=== PATIENT | female | born 1990 | race Caucasian/White ===

== ENCOUNTER 2024-09-23 13:03 | Emergency (ER) | payer OTHER, SELFPAY ==
--- OUTSIDE RECORDS SUMMARY | 2024-08-19 13:15 | XMS_ITS | Encounter Summary ---
Author Organization [facility] Address [address] [address] Care Team Providers Care Csm Consultant Name Role Phone Aziza Winkler MD Primary Care Provider [phone] Reason for Visit * Reason Comments Diabetes Follow-up Encounter Details Date Type Department Care Team (Late st Contact Info) Description 08/19/2024 1:15 PM CDT Office Visit [facility] [address] End[address] [facility]. [place], [place] [id number] Cyndi Ontiveros, HIDE CURER, COMMUNITY MARKETING COORDINATOR [address] [place], [place] [phone] Type 1 diabetes mellitus with other specified complication (HRC) (Primary Dx); Diabetic gastroparesis associated with type 1 diabetes mellitus (HRC); Insulin pump in place (HRC); PCOS (polycystic ovarian syndrome) (HRC); Thyroid nodule (HRC) Social History Tobacco Use Types Packs/Day Years Used Date Smoking Tobacco: Never Smokeless Tobacco: Never Alcohol Use Standard Drinks/Week Comments No 0 (1 standard drink = 0.6 oz pur e alcohol) Depression Answer Date Recor ded Last EPDS Total Score 19 03/29/2024 Last EPDS Self Harm Result Not on file 03/29 Comments No Sex and Gender Information Value Date Recorded Sex Assigned at Not on file Legal Sex Female 4:38 AM CDT Gender Identity Not on file Sexual Orientation Not on file 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 female is contacted for follow up of Type 1 diabetes.. [facility] History of Present Illness: Subjective: Diagnosed with diabetes: age 2 Complications: Last eye exam: Over 1 yr. Foot exam: today 07/2024. History of some insulin resistance. History of some gastroparesis symptoms. Normal gastric emptying scan 2016. Kidney screen: AlbCr ratio was 237 in 06/2024--with bilirubin. Recheck 07/08/2024 42 again with Bilirubin. Met with PCP re: bilirubinuria, but then no bilirubin. Will recheck albCr ratio again before deciding on EBENEZER I use. Pt is using tandem pump in control IQ mode. Sleep schedule is set nightly. Patient has been utilizing Zepbound from [facility]..Starting wgt: 211 lb . Current weight 139 lb. Goal 140 lb. She has been eating healthy meal plan. Joined a functional fitness gym where she takes 1 hour classes 2-3 times per week and works on weight training and aerobic exercise. Now using 5 mg every 10 days. Has noted increased appetite. Patient finds that she really does not need much bolus insulin at this time with her current meal planning. Was mainly eating pro while losing wgt. Now taking a bit less zepbound, so having some carb. If she enters grams, she often gets low. Other health issues: PCOS Hx of Eating disorder Obstructive sleep apnea History of severe obesity. Right thyroid nodule. Ultrasound-guided FNA 02/2024 was benign. Social history: Tobacco: reports that she has never smoked. She has never used smokeless tobacco. Two sons. 06/2019. Roge. 09/2020 Abad. Using IUD now. Patient states is planning vasectomy. No plans for future pregnancies. Pump settings: Basal [place] 0.7 2pm 0.8 Correction factor 50 I:C ratio 15 g TDD average 27.32. 70% basal. 30% bolus. Enters 24 g/day average. Objective: Very pleasant female. Soft spoken. NAD Glucose Monitoring: Home glucose monitoring: Using CGMS daily BG data uploaded into encounter. 2 weeks of data reviewedand discussed. Average blood sugar 155 SD 41 Very high 01.9% High 24% In range 74% Lows 0.2% Urgent low 0% No severe hypoglycemia. Rise after foods when not giving bolus -- rosie dinner--but sometimes a bit low after entering grams. Vitals: BP 93/60 (BP Location: Right Arm, BP Cuff Size: Regular) Pulse 71 Wt 139 lb (63 kg) BMI 23.85kg/m?? Estimated body mass index is 23.85 kg/m?? as calculated from the following: Height as of 07/26/24: 5' 4.02 (1.626 m). Weight as of this encounter: 139 lb (63 kg). . Assessment: Darby is a 33 y.o. female who was contacted today for Type 1 diabetes mellitus with following diagnoses: Diagnoses and Orders Placed: 1. Type 1 diabetes mellitus with other specified complication (HRC) 2. Diabetic gastroparesis associated with type 1 diabetes mellitus (HRC) 3. Insulin pump in place (HRC) 4. PCOS (polycystic ovarian syndrome) (HRC) 5. Thyroid nodule (HRC) Plan: 1. Adjust I:C ratio 1/20 grams from [place] to 6pm. Keep 1/15 g from 6pm onward. Try to enter grams before carbs more often. 2. Discussed AlbCr ratio results. Recheck with UA. Will start ACEI if needed. Discussed tx of microalb. 3. Will recheck FLP as well as it was quite elevated 06/2024. 4. Follow-up with Dr. Borden in 3-4 months. 5. Pt will continue Zepbound 5 mg every 10 days for now. We discussed that it may be needed detention. documented in this encounter Plan of Treatment Not on file documented as of this encounter Goals Goal Patient Goal Type Associated Problems Recent Progress Patient-Stated? Author Taking my medication Diabetes Education On track( 017 4:14 PM CDT) No Dianna Carter RN, WILLISES Note: Continue to use Bolus Wizard for all boluses. Solving problems related to my diabetes Diabetes Education No Dianna Carter RN, WILLISES Note: Reduce basal rate to 50 - 75% while on trip to [facility]. documented as of this encounter Results * (ABNORMAL) Urinalysis Routine, Micro/Culture if Pos: Clean Catch (09/02/2024 8:59 AM CDT) Urine Microscopic Evaluation Reflex Order Comment Urinalysis results meet criteria for reflex, urine microscopic evaluation performed. 09/02/2024 9:19 AM [facility] Color Yellow 09/02/2024 9:19 AM [facility] Clarity Clear Clear 09/02/2024 9:19 AM [facility] Specific [place] 1.025 1.005 - 1.030 09/02/2024 9:19 AM [facility] pH 6.0 5.0 - 8.0 09/02/2024 9:19 AM [facility] Protein Negative Neg/Trace mg/dL 09/02/2024 9:19 AM [facility] Glucose Negative Negative mg/dL 09/02/2024 9:19 AM [facility] Ketones Negative Negative mg/dL 09/02/2024 9:19 AM [facility] Urobilinogen 0.2 <2.0 EU/dL 09/02/2024 9:19 AM [facility] Bilirubin Negative Negative 09/02/2024 9:19 AM [facility] Blood Trace Neg/Trace 09/02/2024 9:19 AM [facility] Nitrite Negative Negative 09/02/2024 9:19 AM [facility] Leukocyte Esterase Trace(A) Negative 09/02/2024 9:19 AM [facility] Source Clean Catch 09/02/2024 9:19 AM CDT [facility] Urine URINE SPECIMEN COLLECTION, CLEAN CATCH / Unknown Non-blood Collection / Unknown 09/02/2024 8:59 AM CDT 09/02/2024 8:59 AM CDT Cyndi Ontiveros APRN, MARTHA LAB_1 Final Re sult [facility] [address] [place] [address] * Albumin/Creatinine Ratio,Random Urine (09/02/2024 8:59 AM CDT) Albumin/Creati nine Ratio, Urine, Random 8 <30 mg/g 09/02/2024 10:32 AM T [facility] Albumin, Urine, Random 14.3 mg/L 09/02/2024 10:32 AM T [facility] Creatinine, Urine, Random 176 >20 mg/dL mg/dL 09/02/2024 10:32 AM T [facility] Urine Non-blood Collection / Unknown 09/02/2024 8:59 AM CDT 09/02/2024 8:59 AM CDT Cyndi Ontiveros APRN, MARTHA LAB_1 Final [facility] Performing Organization Address City/[facility]/ZIP Co de Phone Number [facility] [address] [place] [address] * Lipid Panel and Direct LDL (if needed) (09/02/2024 8:57 AM CDT) Cholesterol 197 0 - 199 mg/dL 09/02/2024 4:22 PM T [facility] Triglyceride 45 <=149 mg/dL 09/02/2024 4:22 PM T [facility] HDL Cholesterol 61 >=40 mg/dL 4:22 PM T [facility] LDL, Calculated 127 <130 mg/dL 4:22 PM T [facility] Non HDL Chol, Calculated 136 <=159 mg/dL 09/02/2024 4:22 PM T [facility] Cholesterol/HDL Ratio 3.2 <=5.0 09/02/2024 4:22 PM T [facility] Hours Fasting 14.0 8 - 12 Hours 09/02/2024 4:22 PM T [facility] Blood Venipuncture / Unknown 09/02/2024 8:57 AM CDT 09/02/2024 8:57 AM CDT us Cyndi Ontiveros APRN, COMMUNITY MARKETING COORDINATOR LAB_1 Final Re sult [facility] [address] [place] [address], [facility] [address] [place] [address] documented in this encounter Visit Diagnoses Diagnosis Type 1 diabetes mellitus with other specified complication (HRC)- Primary Diabetic gastroparesis associated with type 1 diabetes mellitus (HRC) Insulin pump in place (HRC) Insulin pump status PCOS (polycystic ovarian syndrome) (HRC) Polycystic ovaries Thyroid nodule (HRC) Nontoxic uninodular goiter documented in this encounter Care Teams Csm Consultant Relationship Specialty [place] [address] [place] [address] PCP - General Hospitalist 04/03/16 documented as of this encounter
--- OUTSIDE RECORDS SUMMARY | 2024-08-24 16:00 | XMS_ITS | Encounter Summary ---
Author Organization [facility] Address [address], [place] [address] Care Team Providers Care Bed Spring Maker Name Role Phone Aziza Winkler MD Primary Care Provider [phone] Reason for Visit * Reason Comments Video Visit Anticoagulation Follow-up Xarelto refill Encounter Details Date Type Department Care Team (Late st Contact Info) Description 08/24/2024 4:00 PM CDT Telemedicine [facility] [address] Thrombosis [address] [place] [address] Carol Case, REVENUE RESEARCH ANALYST, HORTICULTURAL AGENT [address] [place] [address] On continuous oral anticoagulation (Primary Dx); History of pulmonary embolism; Factor V Leiden (HRC) Social History Tobacco Use Types Packs/Day [...] 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 Keep in mind the signs and symptoms of bleeding. You are due for routine laboratories. I will send you the results when available. Follow-up 1 year or as needed. Call with questions. Thank you. documented in this encounter Progress Notes * Carol Case APRN, CNP - 08/24/2024 4:00 PM CDT SUBJECTIVE: I'm seeing this 33 y.o. female patient in follow up of anticoagulation. Darby Das is a pleasant 33-year-old female with history of esophageal reflux, type 1 diabetes, gastroparesis, PCOS, anxiety, depression, and history of pulmonary embolism and homozygous factor 5 Leiden. She was diagnosed with a pulmonary embolism in 2010 thought related to use of oral contraceptives. Thrombophilia testing identified her as homozygous factor 5 Leiden. She has been anticoagulated essentially since that time. She was on warfarin. She used Lovenox injections during pregnancies. She would also used Xarelto for a period of time as well. Previously she had been on 10 mg. She is followed with Hematology in the past. Essentially she was given the choice as to whether not she wanted to remain on anticoagulation. She has chosen to continue therapy. She was on Xarelto previously at a 10 mg dose. She was switched to Lovenox during . Last was in 2021 after whichshe apparently did not resume taking Xarelto. Sometime thereafter she saw primary care and Xarelto was resumed at 20 mg daily and then referred to the thrombosis clinic. I met her in May last year.We opted to decrease her dose to 10 mg daily. I am meeting with her today in follow-up. She tells me she is doing well. No problems with chest pain or shortness a breath. No bleeding or bruising issues. Patient Active Problem List Diagnosis Generalized anxiety disorder (HRC) Factor V Leiden (HRC) PCOS (polycystic ovarian syndrome) (HRC) Major depressive disorder, recurrent episode, moderate (HRC) Thyroid nodule Other specified eating disorder Insulin pump in place (HRC) Type 1 diabetes mellitus (HRC) Gastroesophageal reflux disease without esophagitis Rh negative state in antepartum period, first trimester Need for hepatitis B vaccination History of pulmonary embolism S/P primary low transverse ASCUS of cervix with negative high risk HPV Gastroparesis Modified White class D pregestational diabetes mellitus Non-stress test reactive Polyhydramnios affecting in third trimester Postherpetic neuralgia Pre-existing type 1 diabetes mellitus during in third trimester Seasonal allergies Severe episode of recurrent major depressive disorder, without psychotic features (HRC) Supervision of high risk , unspecified, unspecified trimester Unsatisfactory anal cytology smear Multiple thyroid nodules (HRC) 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 BAQSIMI ONE PACK 3 MG/DOSE nasal powder Place 1 Dose (3 mg) into one nostril as needed for Hypoglycemia. May repeat in 15 minutes prn. Do not open tube until ready to use. blood glucose (CONTOUR NEXT TEST) test strip Use 1 strip to test six times per day Blood Glucose Monitoring Suppl (CONTOUR NEXT LINK) w/Device KIT Use as directed to test blood glucose [employer] G7 Sensor continuous blood glucose device USE DIRECTED FOR CONTINUOUS GLUOSE MONITORING. CHANGE EVERY 10 DAYS Glucagon, rDNA, (GLUCAGON EMERGENCY) 1 MG Kit insulin glargine (LANTUS) 100 UNIT/ML injection Inject 14-15 Units subcutaneously daily. In case ofpump fail. insulin lispro (HUMALOG; ADMELOG) 100 UNIT/ML injection vial INJECT SUBCUTANEOUSLY THREE TIMES DAILY BEFORE MEALS DIRECTED TOTAL DAILY USE 85 UNITS insulin syringe-needle 30G X 1/2 inch 0.3 mL Inject 1 Each subcutaneously 4 times a day. Insulin Syringe-Needle U-100 (INSULIN SYRINGE 1CC/29G) 29G X 1/2 1 ML Inject 3- 4 Each subcutaneously daily. lancets (OrbFlex) Use 3 Each to test daily. Use as directed. Pharmacy dispense brand based on insurance. loratadine (CLARITIN) 10 MG tablet Take 1 Tablet (10 mg) by mouth daily. Multiple Vitamin (MULTIVITAMINS OR) ondansetron (ZOFRAN) 4 MG tablet Take 1 Tablet (4 mg) by mouth every 8 hours as needed for Nausea. Probiotic Product (PROBIOTIC DAILY OR) rivaroxaban (XARELTO) 10 MG tablet TAKE 1 TABLET (10 MG) BY MOUTH DAILY. tirzepatide-weight management (ZEPBOUND) 10 MG/0.5ML injection Inject 0.5 mL (10 mg) subcutaneouslyonce every week. No facility-administered medications prior to visit. Adverse Drug Reactions: Bacid Family and Social history reviewed in EMR. Review of Systems: Pertinent items are noted in HPI. OBJECTIVE: Labs: July 15, 2024 creatinine 0.79, AST 21 and ALT 13 ASSESSMENT: On anticoagulation History of pulmonary embolism Homozygous factor 5 Leiden PLAN: Darby and I reviewed the indication for ongoing anticoagulation. She is agreeable to continuing with Xarelto. She is due for routine laboratories. I will send her the results when available. Follow-up 1 year, sooner if needed. She is aware she has questions or concerns she can contact our office. Thank you for allowing me to be part of this patient's care. Carol Case APRN, MARTHA This dictation was done using voice recognition software and may contain incidental errors documented in this encounter Plan of Treatment Not on file documented as of this encounter Goals Goal Patient Goal Type Associated Problems Recent Progress Patient-Stated? Author Taking my medication Diabetes Education On track( 017 4:14 PM CDT) No Dianna Carter RN, PERLA Note: Continue to use Bolus Wizard for all boluses. Solving problems related to my diabetes Diabetes Education No Dianna Carter, RN, WILLISES Note: Reduce basal rate to 50 - 75% while on trip to [facility]. documented as of this encounter Results * Platelets (09/02/2024 8:57 AM CDT) [facility] Platelets 239 150 - 450 x10(9)/L 09/02/2024 9:04 AM CDT [facility] Blood Venipuncture / Unknown 09/02/2024 8:57 AM CDT 09/02/2024 8:57 AM CDT Carol Case APRN, CNP LAB_1 Fin al Result Performing Organization Address [facility] Co de Phone Number [facility] [address] [place] [address] * Hemoglobin, Blood (09/02/2024 8:57 AM CDT) Hemoglobin 12.8 12.0 - 15.5 g/dL 09/02/2024 9:04 AM CDT [facility] Blood Venipuncture / Unknown 09/02/2024 8:57 AM CDT 09/02/2024 8:57 AM CDT Carol aCse APRN, CNP LAB_1 Fin al Result Performing Organization Address [facility] de Phone Number [facility] [address] [place] [address] documented in this encounter Visit Diagnoses Diagnosis On continuous oral anticoagulation- Primary History of pulmonary embolism Personal history of pulmonary embolism Factor V Leiden (HRC) Primary hypercoagulable state documented in this encounter Care Teams Bed Spring Maker Relationship Specialty [place] [address] [place] [address] PCP - General Hospitalist 04/03/16 documented as of this encounter
--- OUTSIDE RECORDS SUMMARY | 2024-09-02 08:50 | XMS_ITS | Encounter Summary ---
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 Author Taking my medication Diabetes Education On track( 017 4:14 PM CDT) No Dianna Carter RN, [facility] Note: Continue to use Bolus Wizard for all boluses. Solving problems related to my diabetes Diabetes Education No Dianna Carter RN, [facility] Note: Reduce basal rate to 50 - 75% [facility]. documented as of this encounter Procedures Procedure Name Priority Date/Time Associated Diagnosis Comments URINALYSIS ROUTINE, MICRO/CULTURE IF POS Routine 09/02/2024 8:59 AM CDT Type 1 diabetes mellitus with other specified complication (HRC) ALBUMIN/CREAT RATIO Routine 09/02/2024 8:59 AM CDT Type 1 diabetes mellitus with other specified complication (HRC) UA MICRO Routine 09/02/2024 8:59 AM CDT Type 1 diabetes mellitus with other specified complication (HRC) LIPID PANEL & DIRECT LDL (IF NEEDED) Routine 09/02/2024 8:57 AM CDT Type 1 diabetes mellitus with other specified complication (HRC) PLATELETS Routine 09/02/2024 8:57 AM CDT On continuous oral anticoagulation HEMOGLOBIN, BLOOD Routine 09/02/2024 8:5 7 AM CDT On continuous oral anticoagulation documented in this encounter Results * (ABNORMAL) Urine Microscopic Evaluation: Clean Catch (09/02/2024 8:59 AM CDT) Urine Culture Comment Urinalysis results do not meet criteria for urine culture reflex. 09/02/2024 9:[address] [facility] Red Blood Cells 0-3 0 - 3 /HPF 09/02/2024 9:[address] [facility] White Blood Cells 0-5 0 - 5 /HPF 09/02/2024 9:[address] [facility] Bacteria Moderate(A) None Seen /HPF 09/02/2024 9:[address] [facility] Squamous Epithelial Cells Few None Seen, Occasiona l, Few /HPF 09/02/2024 9:[address] [facility] Mucus Present(A) None Seen /HPF 09/02/2024 9:[address] [facility] Urine URINE SPECIMEN COLLECTION, CLEAN CATCH / Unknown Non-blood Collection / Unknown 09/02/2024 8:59 AM CDT 09/02/2024 8:59 AM CDT us Cyndi Ontiveros ONLINE AFFILIATE MARKETING MANAGER, READING TUTOR LAB_1 Final Re sult [facility] [address] [place] [address], [facility] * (ABNORMAL) Urinalysis Routine, Micro/Culture if Pos: Clean Catch (09/02/2024 8:59 AM CDT) Urine Microscopic Evaluation Reflex Order Comment Urinalysis results meet criteria for reflex, urine microscopic evaluation performed. 09/02/2024 9:19 AM [facility] Color Yellow 09/02/2024 9:19 AM [facility] Clarity Clear Clear 09/02/2024 9:19 AM [facility] Specific [place] 1.025 1.005 - 1.030 09/02/2024 9:19 AM [facility] pH 6.0 5.0 - 8.0 09/02/2024 9:19 AM [facility] Protein Negative Neg/Trace mg/dL 09/02/2024 9:19 AM [facility] Glucose Negative Negative mg/dL 09/02/2024 9:19 AM [facility] Ketones Negative Negative mg/dL 09/02/2024 9:19 AM [facility] Urobilinogen 0.2 <2.0 EU/dL 09/02/2024 9:19 AM [facility] Bilirubin Negative Negative 09/02/2024 9:19 AM [facility] Blood Trace Neg/Trace 09/02/2024 9:19 AM [facility] Nitrite Negative Negative 09/02/2024 9:19 AM [facility] Leukocyte Esterase Trace(A) Negative 09/02/2024 9:19 AM [facility] Source Clean Catch 09/02/2024 9:19 AM [facility] Urine URINE SPECIMEN COLLECTION, CLEAN CATCH / Unknown Non-blood Collection / Unknown 09/02/2024 8:59 AM CDT 09/02/2024 8:59 AM CDT Cydni Ontiveros APRN, READING TUTOR LAB_1 Final Re sult Performing Organization Address City/[facility]/ZIP Co de Phone Number [facility] [address] [place] [address] * Albumin/Creatinine Ratio,Random Urine (09/02/2024 8:59 AM CDT) Pathologist [facility] Albumin/Creati nine Ratio, Urine, Random 8 <30 mg/g 09/02/2024 10:32 AM CDT [facility] Albumin, Urine, Random 14.3 mg/L 09/02/2024 10:32 AM CDT [facility] Creatinine, Urine, Random 176 >20 mg/dL mg/dL 09/02/2024 10:32 AM CDT [facility] Urine Non-blood Collection / Unknown 09/02/2024 8:59 AM CDT 09/02/2024 8:59 AM CDT Cyndi Ontiveros APRN, READING TUTOR LAB_1 Final Re sult Performing Organization Address [facility] Co de Phone Number [facility] [address] [place] [address] * Platelets (09/02/2024 8:57 AM CDT) [facility] Platelets 239 150 - 450 x10(9)/L 09/02/2024 9:[address] [facility] Blood Venipuncture / Unknown 09/02/2024 8:57 AM CDT 09/02/2024 8:57 AM CDT Carol Case APRN, READING TUTOR LAB_1 Fin al Result Performing Organization Address City/[facility]/ZIP Co de Phone Number [facility] [address] [place] [address] * Hemoglobin, Blood (09/02/2024 8:57 AM CDT) Hemoglobin 12.8 12.0 - 15.5 g/dL 09/02/2024 9:[address] [facility] Blood Venipuncture / Unknown 09/02/2024 8:57 AM CDT 09/02/2024 8:57 AM CDT Carol Case APRN, [facility] LAB_1 Fin al Result [facility] [address] [place] [address] * Lipid Panel and Direct LDL (if needed) (09/02/2024 8:57 AM CDT) [facility] Cholesterol 197 0 - 199 mg/dL 09/02/2024 4:22 PM T [facility] Triglyceride 45 <=149 mg/dL 09/02/2024 4:22 PM [facility] HDL Cholesterol 61 >=40 mg/dL 4:22 PM [facility] LDL, Calculated 127 <130 mg/dL 4:22 PM [facility] Non HDL Chol, Calculated 136 <=159 mg/dL 09/02/2024 4:22 PM [facility] Cholesterol/HDL Ratio 3.2 <=5.0 09/02/2024 4:22 PM [facility] Hours Fasting 14.0 8 - 12 Hours 09/02/2024 4:[address] [facility] Blood Venipuncture / Unknown 09/02/2024 8:57 AM CDT 09/02/2024 8:57 AM CDT Cyndi Ontiveros APRN, READING TUTOR LAB_1 Final Re sult [facility] [address] [place] [address] [address] [place] [address] documented in this encounter Visit Diagnoses Diagnosis Type 1 diabetes mellitus with other specified complication (HRC) On continuous oral anticoagulation documented in this encounter Care Teams Director Social Service Relationship Specialty [place] [address] [place] [address] PCP - General Hospitalist 04/03/16 documented as of this encounter
--- OUTSIDE RECORDS SUMMARY | 2024-09-23 13:06 | XMS_ITS | Encounter Summary ---
Author Organization [email or web address] Address [address] [address] Care Team Providers Care Cyber Forensic Specialist Name Role Phone Aziza Winkler MD Primary Care Provider [phone] Encounter Details Date Type Department Care Team (Late st Contact Info) Description 09/06/2024 Results Follow-Up [facility] [address] Thrombosis [address] [place], [place] [id number] Carol Case, GANG HEMSTITCHING MACHINE OPERATOR, AUTO CUSTOMIZE PAINTER [address] [place] [address] Social History Tobacco Use Types Packs/Day Years [...] Industry Job Start Date Job End Date [employer] Not on file Not on file Not [...] my diabetes Diabetes Education No Dianna Carter, ROD, [place] Note: Reduce basal rate to 50 - 75% while on trip to [facility]. documented as of this encounter Visit Diagnoses Not on filedocumented in this encounter Care Teams Cyber Forensic Specialist Relationship Specialty [place] [address] [place] [address] PCP - General Hospitalist 04/03/16 documented as of this encounter
--- OUTSIDE RECORDS SUMMARY | 2024-09-23 13:06 | XMS_ITS | Encounter Summary ---
Author Organization [place] Address [facility] [place] [address] Care Team Providers Care Enrober Name Role Phone Clemencia Velasquez Primary Care Provider Carlos Bueno MD Unavailable Brodie Otto MD Unavailable Jamaica Morocho MD Unavailable [phone] Encounter Details Date Type Department Care Team (Late st Contact Info) Description 11/06/2022 [facility] [place] [facility] Medical Advice [facility] [address] [place] [address] Julienne Banuelos MD [address] [facility] [address] [place] [address] Social History Tobacco Use Types Packs/Day Years Used Date Smoking Tobacco: Never Passive Smoke Exposure: Never Smokeless Tobacco: Never Alcohol Use Standard Drinks/Week Comments Not Currently 0 (1 standard drink = 0.6 oz pur e alcohol) PHQ-2 Answer Date Recorded PHQ-2 Score 0 01/14/2022 Comments Unknown Sex and Gender Information Value Date Recorded Sex Assigned at Not on file 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 Gender Identity Not on file Sexual Orientation Not on file documented as of this encounter Plan of Treatment Not on file documented as of this encounter Visit Diagnoses Not on filedocumented in this encounter Care Teams Enrober Relationship Specialty Start Date End Date Clinic, [facility] [address] [place] [address] PCP - General 12/07/18 Carlos Bueno MD [address] [place] [id number] Assigned PCP 12/19/21 Brodie Otto MD [address] [place] [id number] Resident Neurology 05/22/23 Jamaica Morocho MD [facility] [address] [place] [address] Emergency Medicine 05/22/23 documented as of this encounter
--- OUTSIDE RECORDS SUMMARY | 2024-09-23 13:06 | XMS_ITS | Encounter Summary ---
Author Organization [facility] Address [address], [place] [address] Care Team Providers Care Saas Architect Name Role Phone Aziza Winkler MD Primary Care Provider [phone] Reason for Visit * Reason Comments Refill Dexcom G7 Sensor con tinuous blood glucose device [Pharmacy Med Name: DEXCOM G7 SENSOR] Encounter Details Date Type Department Care Team (Late st Contact Info) Description 08/01/2024 Refill [facility] [address] Endocrinology [address] [facility] 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 Requested Prescriptions Pending Prescriptions Disp Refills Dexcom G7 Sensor continuous blood glucose device [Pharmacy Med Name: DEXCOM G7 SENSOR] 10 Each 2 Sig: USE DIRECTED FOR CONTINUOUS GLUOSE MONITORING. CHANGE EVERY 10 DAYS * Yamilet Warrenkirilljustine Xrwcomm - 08/01/2024 7:16 AM CDT Dexcom G7 Sensor continuous blood glucose device [Pharmacy Med Name: DEXCOM G7 SENSOR] Medication started: 12/18/2021 Last ordered by ROSIE ONTIVEROS J: 08/06/2023 (361 days ago) QTY: 9, Refills: 3, Sig: use as directed for continuous gluose monitoring. change every 10 days (unchanged) -> Co-sign for patients 65 years or older or any patient on Medicare -> Refill x 12 months (until due for an office visit) -> Calculate the quantity and number of refills manually. Last qualifying visit: 05/14/2024 (in [facility] ENDOCRINOLOGY) Next scheduled visit: 08/19/2024 (in [facility] ENDOCRINOLOGY) [employer] Embedded Refills, Reference: [id number], 08/01/2024 7:16:35 AM CDT, Pool: TARA PN REFILL ([id number]) documented in this encounter Plan of Treatment Not on file documented as of this encounter Goals Goal Patient Goal Type Associated Problems Recent Progress Patient-Stated? Author Taking my medication Diabetes Education On track( 017 4:14 PM CDT) No Dianna Carter, RN, [facility] Note: Continue to use Bolus Wizard for all boluses. Solving problems related to my diabetes Diabetes Education No Dianna Carter, RN, [facility] Note: Reduce basal rate to 50 - 75% while on trip to [facility]. documented as of this encounter Visit Diagnoses Diagnosis Type 1 diabetes mellitus with other specified complication (HRC) documented in this encounter Care Teams Saas Architect Relationship Specialty [place] [address] [place] [address] PCP - General Hospitalist 04/03/16 documented as of this encounter
--- OUTSIDE RECORDS SUMMARY | 2024-09-23 13:06 | XMS_ITS | Encounter Summary ---
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 Author Taking my medication Diabetes Education On track( 017 4:14 PM CDT) No Dianna Carter RN, [facility] Note: Continue to use Bolus Wizard for all boluses. Solving problems related to my diabetes Diabetes Education No Dianna Carter RN, [facility] Note: Reduce basal rate to 50 - 75% while on trip to [facility]. documented as of this encounter Visit Diagnoses Not on filedocumented in this encounter Care Teams Outsole Cutter Machine Relationship Specialty [place] [address] [place] [address] PCP - General Hospitalist 04/03/16 documented as of this encounter
--- OUTSIDE RECORDS SUMMARY | 2024-09-23 13:06 | XMS_ITS | Clinical Summary ---
Author Organization [employer] [facility] Address [address] [place] [id number] Care Team Providers Care Meatcutter Name Role Phone Johanna Salcido MD Unavailable Unava ilable Allergies No known active allergies Medications acetone, urine, test strip As directed. For personal use. Use when sick or with blood glucose greater than 300. 1 Bottle PRN 1 Active Infusion Set for Insulin Pump iset As directed. 0 5 Active ONETOUCH ULTRA TEST strip 6 Active loratadine (CLARITIN) 10 mg tablet Take 10 mg by mouth once daily. 5 Active insulin lispro (HUMALOG) 100 unit/mL injectionIndica tions:type 1 diabetes mellitus,insuli n pump Inject subcutaneous. Indications: type 1 diabetes mellitus, insulin pump 6 Active glucagon 1 mg injection Inject 1 mg subcutaneous. 9 Active rivaroxaban (Xarelto) 10 mg tabletIndicatio ns:Factor V Leiden mutation (HC) Take 1 Tablet (10 mg) by mouth once daily. 30 Tablet 11 1 Active medication order composer Multivitamin daily 0 2 Active enoxaparin (Lovenox) 40 mg/0.4 mL injection Inject 0.4 mL (40 mg) subcutaneous once daily. 0 3 Active Active Problems Problem Noted Date Diagnosed Date Severe episode of recurrent major depressive disorder, without psychotic features 12/14/2020 Unsatisfactory anal cytology smear 10/11/2019 S/P primary low transverse 07/10/2019 Polyhydramnios affecting in third trim nikki 06/29/2019 Postherpetic neuralgia 06/15/2019 Overview (06/15/2019): Taking lidocaine patches, gabapentin Modified White class D pregestational diabetes m ellitus 04/27/2019 Overview (04/27/2019): Age onset 2 Current duration: 25 years Insulin pump D2 Classification (> 20 years) Insulin pump in place 04/27/2019 [facility] Supervision of high-risk 9 Overview (05/28/2019): [facility] CONSULTATION ON 01/05/19, F/U consult 06/01/19 Pre-Conception [facility] Consult 06/2018 REASON FOR CONSULT: Delivery planning TODAY'S APPOINTMENT: MD Consultation & ultrasound exam PRIMARY DIAGNOSIS: 28 y.o. Estimated Date of Delivery: 07/16/19 Type 1 DM - insulin pump Gastroparesis Factor V Leiden homozygote - Lovenox 40 QD Hx bilateral PE while on OCPs (2010) Rh Negative BPD/depression/anxiety PCOS LAST GROWTH: 04/27/19 28w4d EFW 1463 grams, percentile: 78 03/02/19 20w4d EFW 384 grams, percentile: 59 11/26/18 7w3d Dating with PCP ECHO:03/02/19: Normal ECHO REFERRING PHYSICIAN/PHONE/LAST UPDATE: Sandy Berkowitz MD [place] [phone] Primary MD approves scheduling of recommended ultrasounds/testing: Yes SPECIALISTS/CONSULTS: Endocrinology Janice Guerrero MD [phone] [place] 12/10/18 - next 01/04/19 Hematology Peggy Dinh MD [place] [facility] [phone] [place] 01/2018 Psychology Chaya Noel, Marlen, LP [place] [phone] [place] 12/03/18 Ophthalmology Teresita Shelton, OD [facility] [phone] 07/07/18 - No retinopathy CARE COORDINATION: Petra Mendoza RN, [id number]; Dionna Shaver RN [id number] MPP MOMS Maternal Care Coordination Chart review completed 05/28/19 GENETICS: 12/31/18: [place] PROCEDURES: EKG 11/09/18: NSR PERTINENT LABS: Labs reviewed? Yes Normal? Yes A Negative/Antibody Negative 11/04/18: Hgb A1c: 6.9 PERTINENT MEDS: Insulin Pump Lovenox 40mg QD Celexa Preferred delivery location: [facility] PLAN OF CARE: 04/27/19 per WW -Return to primary OB provider for continued care. -No alterations in the delivery plan are necessary. -No medication changes are indicated. -Begin 2x weekly testing (BPP-NST/NST) at 32 weeks -Ultrasound assessment of growth @ 4-6 week intervals: these can be done with primary provider -Present findings are reassuring. 03/02/19 per ML -Return to primary provider for continued care. -Delivery at 39 weeks unless indicated sooner -Recommend twice weekly testing starting at 32 weeks, alternating BPP with NST -Serial assessment of growth at 28 weeks and 34 weeks -Follow up appointments for Ultrasound only were scheduled in our office today. 06/25/18 per ML -On review of her medical history and discussion with the patient, I do not see any absolute contraindications to . -Due to her irregular menstrual cycles, the patient implies a strategy of frequent urine test at home to determine if she is as she knows she will likely require transition off of Xarelto. -Due to her underlying homozygous factor V Leiden mutation and history of estrogen related pulmonary embolism we discussed the recommendation for prophylactic anticoagulation in . We discussed that typically patients who are on Xarelto prepregnancy are transitioned to Lovenox 40 mg once a day in the first trimester of . We discussed the transition to unfractionated heparin at approximately 36 weeks in an effort to improve the chances of her being able to get regional anesthetic. We discussed the need for scheduled delivery at 39 weeks for patients who are in anticoagulation therapy in . We also discussed that she will need to transition off anticoagulation for a brief duration of time for delivery and then will transition back to anticoagulation therapy in the . She verbalized understanding of this counseling. -With regard to her underlying type 1 diabetes we discussed the importance of excellent glycemic control during the period of embryo whitney. She is aware of the goal to achieve a hemoglobin A1c of 6.5% prior to conception. She is currently at 7.1% and she was congratulated on her efforts to achieve this. She will continue to work with her solutions developer to achieve the goal of a hemoglobin A1c of 6.5%. We discussed adverse outcomes associated with type 1 diabetes in including maternal hypertensive disorders of , delivery, delivery. With regard to risks we discussed the increased risk of congenital abnormalities, growth abnormalities, and third trimester stillbirth. We discussed that the cornerstone to minimizing risk is excellent glycemic control. Given her history of several episodes of diabetic ketoacidosis we discussed the potential risk of in utero demise associated with diabetic ketoacidosis in . She was encouraged to continue her annual ophthalmology follow-up as well as obtain an EKG prepregnancy or at her initial visit when she achieves . She verbalized understanding of this counseling. -When she had she is we would like to see her at approximately 12 weeks gestational age for consultation and genetic counseling options. Rh negative state in antepartum period, first tr imester 11/09/2018 Gastroparesis 11/09/2018 High risk , antepartum 11/06/2018 Overview (12/22/2018): Prepregnancy BMI: Early GCT: Not indicated: Type-1 diabetes On Insulin pump. On Lovenox 40mg SC daily for Factor V Leiden Hyperemesis - On Reglan, Zofran and IV home health therapy. Dated by: LMP= Us at 7 and 8 weeks. Would accept blood products: yes Medical History: * Factor V Leiden w/ Hx bilat PE - 2010 (while on BCP) * Type 1 diabetes with pump & long-acting insulin * BPD, depression, anxiety; no Rx currently; has therapist * PCOS Previous deliveries reviewed by MD: screening: Screening US: ABO/Rh: A neg (neg joshua screen 10/2018) GCT: Not indicated. Hgb: TDap: Flu: GBS: Support: Spouse ASCUS of cervix with negative high risk HPV 02/2016 Overview (07/16/2016): 06/2016 ASCUS/HPV negative. Plan: Pap/HPV due 06/2019 Generalized anxiety disorder 07/12/2014 Seasonal allergies 10/15/2012 Factor V Leiden mutation 05/06/2011 Diabetes mellitus type I 03/29/2010 Overview (03/29/2010): Diagnosed around Managed by: Jamaica Muñoz (Help Desk Rep @ [facility]) Complications: None known Previous/Ineffective Meds: Current/Effective Meds: Novolog insulin pump Tolerating Aspirin: Tolerating EBENEZER: Tolerating Statin: Last Eye Exam: June 2009 Last Foot Exam: Last DM education: February 2010 HEMOGLOBIN A1C (% Total Hgb) Date Value 03/25/2010 8.5* History of pulmonary embolism 03/29/2010 Overview (03/29/2010): Occurred while on OCP's 03-25-10 Previous Ineffective Meds: Current/Effective Meds: Lovenox, coumadin Major depressive disorder, recurrent episode, mo derate 03/29/2010 PCOS (polycystic ovarian syndrome) 10/18/2009 Pre-existing type 1 diabetes mellitus during in third trimester Non-stress test reactive Resolved Problems Problem Noted Date Diagnosed Date Resolved Date Nausea and vomiting in 11/09/2018 06/01/2019 Carpal tunnel syndrome of left wrist 11/09/2018 07/10/2019 S/P right open carpal tunnel release, DOS: 03/03/18 by Gume Grimes MD 03/13/2018 11/09/2018 [facility] Preconception consultation 03/06/2018 12/31/2018 Overview (06/18/2018): [facility] CONSULTATION REASON FOR CONSULT: Preconception consult and Genetic counseling TODAY'S APPOINTMENT: MD Consultation PRIMARY DIAGNOSIS: 27 y.o. Hx of a PE in 2010 Type 1 Diabetes ~ on a pump Factor V Leiden PCOS Hx of anxiety/depression, binge eating Last Hgb A1C 05/27/18 = 7.1% Carpal tunnel , surgery on 03/03/18 REFERRING PHYSICIAN/PHONE/LAST UPDATE: Dr Alisson Khanna [phone] Primary MD approves scheduling of recommended ultrasounds/testing SPECIALISTS/CONSULTS: Director Of Operations: Dr Renny Dinh , visit scheduled for 03/12/18 at 1:30 pm Endocriniologist: Dr Javid Borden at , last visit 11/27/17 ~ in Care Everywhere CARE COORDINATION: GENETICS: Had on 03/12/18 with Vera Young PROCEDURES: PERTINENT LABS: Last Hgb A1C 05/27/18 = 7.1% PERTINENT MEDS: Mora Prettyalog Khalida Romero MD PLAN OF CARE: Bilateral carpal tunnel syndrome 01/02/2018 11/09/2018 Overview (01/02/2018): EMG 12/2017: Mild median nerve entrapment bilaterally, symptoms are more severe, braces have not helped, consult to hand specialist placed Diabetic ketoacidosis withou t coma associated with type 1 diabetes mellitus 06/12/2015 11/09/2018 Binge eating disorder 02/08/20152018 Elevated lithium level 05/06/201411/09 Diabetes mellitus type I 10/15/2012 Thyroid nodule 04/25/2011 11/09/2018 Other pulmonary embolism and infarction 11/09/2010 11/09/2018 Pulmonary embolism 03/26/2010 1 Bipolar affective 10/18/2009 04/08/2011 Counseling for parent-child problem, unspecified 04/17/2007 08/21/2015 Generalized anxiety disorder 04/16/2007 02/23/2015 Depressive disorder, not elsewhere classified 04/16/19 08 03/29/2010 Type I (juvenile type) diabe bryan mellitus without mention of complication, not stated as uncontrolled 04/16/2007 03/29/2010 Bipolar disorder 04/08/2011 Vaginal bleeding in 07/10/2019 Immunizations Immunization Administration Dates Next Due COVID-19 vaccine (Moderna 100mcg/0.5mL) CAESAR LUGO 04/21/2020,03/24/2020 DTP 08/20/1995, 2,06/09/1990,1990,01/08/1990 DTaP 08/19/1995, 2,06/09/1990,1990,01/08/1990 Hepatitis B (Adult) 10/12/2002,05/03/2002,2002 Hepatitis B (Peds) 10/12/2002, 3,04/05/2002,1990,06/17/1990 Hepatitis B, Unspecified 08/08/1990,06/17/1990 Hib Conjugate, Unspecified 03/16/1991,,06/17/1990,1989 Influenza A (H1N1), Inactiva gael (Age >=3 Years) 02/09/2009 Influenza RIV4 (Age 18+ Year s) PRESERV FREE 12/16/2019 Influenza Virus, Unspecified 12/16/2019, 01/10/2005,01/25/1993,1992 Influenza, IIV3 (Age >=3 years) 01/10/2005,12/10 Influenza, IIV4 02/18/2019 MMR 03/16/1991 Oral Polio Vaccine 08/19/1995, 2,04/15/1990,1989 Polio Virus, Unspecified 08/19/1995,02/25,04/15/1990,1989 Tdap 04/20/2019,04/25/2014 Tuberculin (PPD) 02/05/2011 Tuberculin Skin Test, Unspecified 02/05/2011,11/1990 Family History Medical History Relation Name Comments Alcoholism Brother Ray Asthma Brother Ray Blood Disease Father Factor V Leide n (based on patient being homozygous for Factor V Leiden) GI Disease Father gall stones Stroke Maternal Grandfather Multipl e No Known Problems Maternal Grandmother Blood Disease Mother Factor V Leide n (based on patient being homozygous for Factor V Leiden) Good Health Mother Diabetes Other 1 Cousin Type I Psychiatric illness Other 1 Cousin Complete d suicide in ~ paternal cousins with depression Alcoholism Other 2 Paternal Cousins Thyroid Disease Paternal Aunt 1 x3 Cancer Paternal Aunt 2 jaw and lymp h nodes Psychiatric illness Paternal Aunt 3 Depre ssion, PTSD No Known Problems Paternal Grandfather Other Paternal Grandmother Lyme di sease Thyroid Disease Paternal Grandmother Psychiatric illness Sister Anai history of suicide attempts, depression, PTSD Cancer-breast No Family History Cancer-colon No Family History Cancer-ovarian No Family History Drug Abuse No Family History Relation Name Status Comments Brother Ray Father Alive Maternal Grandfather Maternal Grandmother Alive Mother Alive Other 1 Cousin Other 2 Paternal Cousins Paternal Aunt 1 x3 Paternal Aunt 2 Paternal Aunt 3 Paternal Grandfather Alive Paternal Grandmother Alive Sister Anai Social History Tobacco Use Types Packs/Day Years Used Date Smoking Tobacco: Never Smokeless Tobacco: Never Tobacco Cessation:Counseling Given: Yes Alcohol Use Standard Drinks/Week Comments Not Currently 0 (1 standard drink = 0.6 oz pur e alcohol) PHQ-2 Answer Date Recorded PHQ-2 TOTAL SCORE 0 08/09/2020 Financial Resource Strain Answer Date R ecorded Difficulty of Paying Living Expenses Not on file 02/22/2021 Difficulty of Paying Living Expenses Not on file 02/22/2021 Comments No Sex and Gender Information Value Date Recorded Sex Assigned at Not on file Legal Sex Female 8:13 AM WIRE BENDER Gender Identity Not on file Sexual Orientation Not on file 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 Not on file Not on file Not on fi le Obstetrics History Para Term AB IAB SAB Ectopic Multiple Livin g Live Births 2 1 1 0 0 0 0 0 0 1 1 Date Outcome GA Total Labor Labor/2nd/3rd Weight Sex Type Anes PTL Izabel A1 A5 Name Clin 2019 Term 39w 1d 0h 05m M Spinal Livin g ROSE, BB DARBY Dunlap MD Delivery Location:[facility] ([address]) Last Filed Vital Signs Vital Sign Reading Time Taken Comments Blood Pressure 107/70 06/26/2022 9:53 AM CDT Pulse 83 06/26/2022 9:53 AM CDT Temperature 36.3 C (97.3 F) 06/26/2022 9:53 AM CDT Respiratory Rate 16 06/26/2022 9:53 AM CDT Oxygen Saturation 97% 07/13/2019 8:00 AM CDT Inhaled Oxygen Concentration - - Weight 91.6 kg (202 lb) 06/26/2022 9:53 AM CDT Height 162.6 cm (5' 4) 06/26/2022 9:53 AM CDT Body Mass Index 34.67 06/26/2022 9:53 AM CDT Plan of Treatment Health Maintenance Due Date Last Done Comments Pneumococcal series for age 6-49 (1 of 2 - PCV) 2008 Depression screening for age 12+ 08/09/2021 08/09/2020, 07/30/2019, 04/22/2019, Additional history exists BMI (ht and wt on same day) for age 18+ 06/27/2023 06/26/2022, 08/09/2020, 10/11/2019, Additional history exists COVID-19 vaccine series ( season) 2023 02/04/2022, 04/13/2021, 04/21/2020, Additional history exists Pap test for age 21-65 10/10/2024 0, 10/11/2019, 08/31/2019, Additional history exists Influenza Vaccine (#1) 2024 0, 12/16/2019, 02/18/2019, Additional history exists Tetanus booster 04/20/2029 04/20/2019, 04/25/2014 Hepatitis B series for 19+ Completed 10/12, 10/12/2002, 05/03/2002, Additional history exists Hepatitis C screening for ag e 18-79 Completed 11/04/2018, 08/24/2013 HIV for age 15-65 Completed 04/12/2021, , 08/24/2013 Medical Devices Implanted Type Area Software Tester Device Identifier Shelf Expiration Date Model / Serial / Lot Implant On The Fly - [id number] Implanted:Qty: 1 on 06/12/2010 at [facility] N/A: Uterus [employer] 11/12/2012 [id number] / / [id number] Description:Mirena IUD from Dr. Mcbride's office-she will charge Sys Intrauterine Mirena - [id number] Implanted:Qty: 1 on 02/06/2015 by Ailsson Greco MD at [facility] N/A: Uterus [employer] 07/24/2017 [facility]# / / [id number] Description:NOT VERIFIED...E D 02/07 Procedures Procedure Name Priority Date/Time Associated Diagnosis Comments HIV EXTERNAL Routine 04/12/2021 MEMBERSHIP DIRECTOR THIN PREP PAP DIAGNOSTIC IMAGED Routine 10/11/2019 3:00 PM CDT Unsatisfactory anal cytology smear ASCUS of cervix with negative high risk HPV ANTI HCV Routine 11/04/2018 3:02 PM CDT High-risk , first trimester (HC) from Last 3 Months or Most Recently Relevant to Health Maintenance Results * HIV EXTERNAL (04/12/2021) EXTERNAL HIV Negative [facility]self [facility] Blood BLOOD SPECIMEN / Unknown [facility] Final Result Performing Organization Address City/State/[facility] Co de Phone Number [facility] [address] [place] [id number] * MEMBERSHIP DIRECTOR THIN PREP PAP DIAGNOSTIC IMAGED (10/11/2019 3:00 PM CDT) Case Report Gynecologic Cytology Report Case: [id number] Authorizing Provider: Sandy Berkowitz MD Collected: 10/11/2019 1500 Ordering Location: [facility] Received: 10/11/2019 1644 Clinic First Screen: Renea Parmar Rescreen: Aidan Lopez Specimen: MEMBERSHIP DIRECTOR ThinPrep Vial Diagnostic, Cervical 10/20/2019 1:11 PM CDT [facility] INTERPRETATION/ RESULT NEGATIVE FOR INTRAEPITHELIAL LESION OR MALIGNANCY (NIL) (none) 10/20/2019 1:11 PM CDT [facility] at 1311 CDT SPECIMEN ADEQUACY Satisfactory for evaluation Endocervical component present 10/20/2019 1:11 PM CDT [facility] HPV REQUEST HPV and PAP 10/20/2019 1:11 PM CDT [facility] Date of LMP 10/09/2018 10/20/2019 1:11 PM CDT [facility] Last Pap Date 08/31/19 10/20/2019 1:11 PM CDT [facility] Last Pap Result UNS 0 1:11 PM CDT [facility] Abnormal Pap or [place] Bx in last 5 years Yes 10/20/2019 1:11 PM CDT [facility] Menstrual Status Irregular Periods 10/20/2019 1:11 PM CDT [facility] [place] Bx Done Today No 10/20/2019 1:11 PM CDT [facility] Additional Information None Given 10/20/2019 1:11 PM CDT [facility] Comment: Cytology is screened at [facility] - [address], [place] [address] and [facility] - [address], [place] [address] and [facility] - [address] [place] [address] Interpreted at [facility] - [address], [place] [address] Automated Review Successful 10/20/2019 1:11 PM CDT [facility] Comment:Specimen processed s uccessfully by automated field party manager device, ThinPrep Imaging System, [employer] ANCILLARY TESTING MEMBERSHIP DIRECTOR HPV Ordered, Please see separate report 10/20/2019 1:11 PM CDT [facility] Note The pap test is a screening technique, not a diagnostic procedure. It is used primarily to screen for squamous cancers and precursor lesions. Published studies have shown that it is subject to both false negative and false positive results. The pap test should not be used as the sole means to diagnose or exclude pre-malignant and malignant lesions. 10/20/2019 1:11 PM CDT [facility] Other (Cervical) Non-Blood / Unknown 10/11/2019 3:00 PM CDT 10/11/2019 4:44 PM CDT Comment:Did have ASCUS prior to this Pap smear on 08/31/2019 us Sandy Berkowitz MD PATHOLOGY/CYTOLOGY Final Result [facility] [address] [place] [address], [place] * ANTI HCV (11/04/2018 3:02 PM CDT) HEPATITIS C ANTIBODY Non-React maxim Non-React maxim 11/04/2018 8:28 PM CDT [facility] Comment:Antibodies to HCV no t detected; does not exclude the possibility of exposure to HCV. Blood BLOOD SPECIMEN / Unknown Venipuncture / Unknown 11/04/2018 3:02 PM CDT 11/04/2018 3:03 PM CDT us Essie Michelle MD SEND OUTS Final Res ult [facility] [address] [place] [id number], from Last 3 Months or Most Recently Relevant to Health Maintenance Insurance [place] [id number] Advance Directives * Full Code (Latest Code Status on File) Date Activated Date Inactivated Comments 07/09/2019 10:41 AM 07/13/2019 3:00 PM Question Answer Comments Code Status Discussion: Other (specify in commen ts): Physician Determined * Full Code Date Activated Date Inactivated Comments 07/09/2019 9:50 AM 07/09/2019 10:41 AM * Full Code Date Activated Date Inactivated Comments 03/03/2018 5:51 AM 03/03/2018 12:43 PM * Full Code Date Activated Date Inactivated Comments 06/12/2015 3:30 AM 06/13/2015 1:06 PM * Full Code Date Activated Date Inactivated Comments 02/06/2015 9:00 AM 02/06/2015 1:27 PM Care Teams Meatcutter Relationship Specialty Start Date End Date Johanna Salcido MD Psychiatry Psychiatry 08/08/15 [facility] [address] [place] [address] Ophthalmology Installations Inspector 04/20/21
--- OUTSIDE RECORDS SUMMARY | 2024-09-23 13:06 | XMS_ITS | Clinical Summary ---
Author Organization [place] Address [address] [facility] [place] [address] Care Team Providers Care Buckle Attacher Name Role Phone Clemencia Velasquez [place] Primary Care Provider Carlos Bueno MD Unavailable Brodie Otto MD Unavailable Jamaica Morocho MD Unavailable Allergies Active Allergy Reactions Criticality Noted Date Comments Bacid GI Disturbance 10/19/2021 intolerance Gluten Meal GI Disturbance 10/19/2021 Intolerance per pt Medications HUMALOG 100 UNIT/ML injection INJECT 50-70 UNITS SUBCUTANEOUSLY DAILY. 04/09/19 22 Active BD INSULIN SYRINGE U/F 30G X 1/2 0.3 ML miscellaneous INJECT 1 EACH SUBCUTANEOUSLY 4 TIMES A DAY. 09/14/19 22 Active levonorgestrel (KYLEENA) 19.5 MG IUD 1 each by Intrauterine route 12/01/19 22 027 Active loratadine (CLARITIN) 10 MG tablet Take 10 mg by mouth daily Active ibuprofen (ADVIL/MOTRIN) 600 MG tablet 10/21/19 22 Active blood glucose (CONTOUR NEXT TEST) test strip Use 1 strip to test six times per day 05/24/19 22 Active CONTOUR NEXT TEST test strip USE 6 EACH TO TEST DAILY. 11/13/19 22 Active enoxaparin ANTICOAGULANT (LOVENOX) 40 MG/0.4ML syringe INJECT 40 MG SUBCUTANEOUSLY DAILY FOR 90 DOSES. 05/11/19 Active glucagon 1 MG kit 04/09/19 Active Continuous Blood Gluc Sensor (DEXCOM G6 SENSOR) [facility] 12/22/19 Active Continuous Blood Gluc Transmit (DEXCOM G6 TRANSMITTER) MISC 12/22/19 22 Active Continuous Blood Gluc Metalizing Machine Operator Automatic (DEXCOM G6 ARBORICULTURE INSTRUCTOR) SHANEL 12/22/19 Active betamethasone valerate (VALISONE) 0.1 % external ointment 11/23/19 Active rivaroxaban ANTICOAGULANT (XARELTO) 20 MG TABS tablet Take 1 tablet (20 mg) by mouth daily (with dinner) 30 tablet 05/21/19 24 Active prochlorperazine (COMPAZINE) 10 MG tablet Take 1 tablet (10 mg) by mouth every 6 hours as needed (headache or nausea) 10 tablet 05/21/19 24 Active Active Problems Problem Noted Date Diagnosed Date Factor V Leiden 01/14/2022 Overview (01/14/2022): homozygous, dx 2010 Gastroparesis 01/14/2022 Hyperlipidemia LDL goal <70 01/14/2022 Type 1 diabetes mellitus 01/14/2022 Overview (01/14/2022): a1c = 4.9, 09/2021, insulin pump, endocrine History of pulmonary embolism 02/24/2010 Immunizations Immunization Administration Dates Next Due Influenza Vaccine >6 months,quad, PF 11/27/2022 Family History Relation Status Comments Brother Alive Father Alive Maternal Grandfather Maternal Grandmother Mother Alive Paternal Grandfather Alive Paternal Grandmother Alive Sister Alive Social History Tobacco Use Types Packs/Day Years Used Date Smoking Tobacco: Never Passive Smoke Exposure: Never Smokeless Tobacco: Never Tobacco Cessation:Counseling Given: Not Answered Alcohol Use Standard Drinks/Week Comments Not Currently 0 (1 standard drink = 0.6 oz pur e alcohol) PHQ-2 Answer Date Recorded PHQ-2 Score 0 01/14/2022 Adolescent Education Answer Date Record ed Getting School Help Needed Not on file 11/16 Comments Unknown Sex and Gender Information Value Date Recorded Sex Assigned at Not on file 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 Gender Identity Not on file Sexual Orientation Not on file Last Filed Vital Signs Vital Sign Reading Time Taken Comments Blood Pressure 96/60 05/21/2023 3:00 PM CDT Pulse 85 05/21/2023 3:00 PM CDT Temperature 36.4 C (97.6 F) 05/21/2023 8:57 AM CDT Respiratory Rate 16 05/21/2023 3:19 PM CDT Oxygen Saturation 99% 05/21/2023 3:00 PM CDT Inhaled Oxygen Concentration - - Weight 99.8 kg (220 lb) 05/21/2023 8:57 AM CDT Height 162.6 cm (5' 4) 05/21/2023 8:57 AM CDT Body Mass Index 37.76 05/21/2023 8:57 AM CDT Plan of Treatment Health Maintenance Due Date Last Done Comments ADVANCE CARE PLANNING 1989 DIABETIC FOOT EXAM 1989 YEARLY PREVENTIVE VISIT 1992 PNEUMOCOCCAL VACCINE: PEDIATRICS (0 to 5 YEARS) AND AT-RISK PATIENTS (6 to 49 YEARS) (1 of 2 - PCV) 2008 ANNUAL REVIEW OF HM ORDERS 01/14/2023 01/14/2022 EYE EXAM 09/26/2023 09/25/2022 A1C 10/12/2023 07/12/2023 COVID-19 VACCINE ( season) 2023 02/04/2022, 04/13/2021, 04/21/2020, Additional history exists PHQ-2 (once per calendar year) 2024 01/14/2022 BMP 05/20/2024 05/21/2023, 12/07/2018 LIPID 07/11/2024 07/12/2023 MICROALBUMIN 07/11/2024 07/12/2023 INFLUENZA VACCINE (#1) 2024 , 01/11/2022, 12/16/2019, Additional history exists HPV TEST 12/21/2028 12/22/2023 PAP 12/21/2028 12/22/2023, 11/25, 04/12/2021 DTAP/TDAP/TD VACCINE (9 - Td or Tdap) 08/31/2031 08/30/2021, 04/20/2019, 04/25/2014, Additional history exists ZOSTER VACCINE (1 of 2) 11/03/2039 HEPATITIS C SCREENING Completed 01/14/2022, 019 HIV SCREENING Completed 01/14/2022, 04/12/2021 HEPATITIS B VACCINE Completed 04/27/2022, 01/11/2022, 10/12/2002, Additional history exists HPV VACCINE (No Doses Required) Completed MENINGITIS VACCINE Aged Out No longer eligible based on patient's age to complete this topic Procedures Procedure Name Priority Date/Time Associated Diagnosis Comments HPV AND GYNECOLOGIC CYTOLOGY PANEL Routine 12/22/2023 3:37 PM CDT Encounter for screening for malignant neoplasm of cervix ALBUMIN RANDOM URINE QUANTITATIVE Routine 07/12/2023 10:18 AM CDT Polycystic ovaries Type I diabetes mellitus with hyperosmolar coma (H) LIPID REFLEX TO DIRECT LDL PANEL Routine 07/12/2023 10:11 AM CDT Polycystic ovaries Type I diabetes mellitus with hyperosmolar coma (H) HEMOGLOBIN A1C Routine 07/12/2023 10:11 AM CDT Polycystic ovaries Type I diabetes mellitus with hyperosmolar coma (H) BASIC METABOLIC PANEL STAT 05/21/2023 9:09 AM CDT from Last 3 Months or Most Recently Relevant to Health Maintenance Results * HPV and Gynecologic Cytology Panel (12/22/2023 3:37 PM CDT) Human Papilloma Virus 16 DNA Negative Negative 12/25/2023 7:46 AM CDT [facility] Human Papilloma Virus 18 DNA Negative Negative 12/25/2023 7:46 AM CDT [facility] Human Papilloma Virus Other Negative Negative 12/25/2023 7:46 AM CDT [facility] FINAL DIAGNOSIS This patient's sample is negative for high risk HPV DNA. METHODOLOGY: The [employer] system uses automated extraction, simultaneous amplification of HPV (E6/E7 oncogenes) and beta-globin, followed by real time detection of fluorescent labeled HPV and beta globin using specific oligonucleotide probes. The test specifically identifies types HPV 16 DNA and HPV 18 DNA while concurrently detecting the rest of the high risk types (31, 33, 35, 39, 45, 51, 52, 56, 58, 59, 66 or 68). COMMENTS: This test is not intended for use as a screening device for woman under age 30 with normal cervical cytology. Results should be correlated with cytologic and histologic findings. Close clinical follow up is recommended. Please see the separate Gynecologic Cytology (Pap) report from the same collection date. 12/25/2023 7:46 AM CDT MOLECULAR DIAGNOSTICS Brushing ENDOCERVICAL STRUCTURE / Unknown Non-blood Collection / Unknown 12/22/2023 3:37 PM CDT 12/22/2023 9:25 PM CDT us Josephine Sanchez MD LAB - BLOOD ORDERABLES Claribel chapa Result [facility] Specialty Lab [address] [facility], [address] [address] [place] [address] MOLECULAR DIAGNOSTICS Molecular Diagnostics [address] [facility], [address] [address] * Albumin Random Urine Quantitative with Creat Ratio (07/12/2023 10:18 AM CDT) Creatinine Urine mg/dL 113.0 mg/dL 07/12/2023 10:44 PM CDT [facility] Comment:The reference ranges have not been established in urine creatinine. The results should be integrated into the clinical context for interpretation. Albumin Urine mg/L <12.0 mg/L 2023 10:44 PM CDT [facility] Comment:The reference ranges have not been established in urine albumin. The results should be integrated into the clinical context for interpretation. Albumin Urine mg/g Cr 07/12/2023 10:44 PM CDT [facility] Comment: Unable to calculate, urine albumin and/or urine creatinine is outside detectable limits. Microalbuminuria is defined as an albumin:creatinine ratio of 17 to 299 for males and 25 to 299 for females. A ratio of albumin:creatinine of 300 or higher is indicative of overt proteinuria. Due to biologic variability, positive results should be confirmed by a second, first-morning random or 24-hour timed urine specimen. If there is discrepancy, a third specimen is recommended. When 2 out of 3 results are in the microalbuminuria range, this is evidence for incipient nephropathy and warrants increased efforts at glucose control, blood pressure control, and institution of therapy with an ltzrebwlbnb-fjqqzjsdrn-swtkar (EBENEZER) inhibitor (if the patient can tolerate it). Urine URINE SPECIMEN / Unknown Non-blood Collection / Unknown 07/12/2023 10:18 AM CDT 07/12/2023 10:18 AM CDT Cyndi Ontiveros ENVIRONMENTAL HEALTH AIDE LAB - URINE ORDERABLES Final R esult [facility] [facility] [address] [facility], [address] [place] [address] * (ABNORMAL) Lipid panel reflex to direct LDL Fasting (07/12/2023 10:11 AM CDT) Cholesterol 191 <200 mg/dL 07/12/2023 10:37 PM CDT [facility] Triglycerides 70 <150 mg/dL 07/12/2023 10:37 PM CDT [facility] Direct Measure HDL 56 >=50 mg/dL 07/12/2023 10:37 PM CDT [facility] LDL Cholesterol Calculated 121(H) <=100 mg/dL 07/12/2023 10:37 PM CDT [facility] Non HDL Cholesterol 135(H) <130 mg/dL 07/12/2023 10:37 PM CDT [facility] Patient Fasting > 8hrs? No 07/12/2023 10:37 PM CDT [facility] Blood STRUCTURE OF LEFT UPPER LIMB / Unknown Venipuncture / Unknown 07/12/2023 10:11 AM CDT 07/12/2023 10:12 AM CDT Narrative [facility] - 07/12/2023 10:37 PM CDT Cholesterol Desirable: <200 mg/dL Triglycerides Normal: Less than 150 mg/dL Borderline High: 150-199 mg/dL High: 200-499 mg/dL Very High: Greater than or equal to 500 mg/dL Direct Measure HDL Female: Greater than or equal to 50 mg/dL Male: Greater than or equal to 40 mg/dL LDL Cholesterol Desirable: <100mg/dL Above Desirable: 100-129 mg/dL Borderline High: 130-159 mg/dL High: 160-189 mg/dL Very High: >= 190 mg/dL Non HDL Cholesterol Desirable: 130 mg/dL Above Desirable: 130-159 mg/dL Borderline High: 160-189 mg/dL High: 190-219 mg/dL Very High: Greater than or equal to 220 mg/dL Cyndi Ontiveros ENVIRONMENTAL HEALTH AIDE LAB - BLOOD ORDERABLES Final R esult Performing Organization Address City/[facility]/ZIP Co de Phone Number U LABORATORY [facility] [facility] [address] [facility] [address], [address] [place] [address] Lab [address] Lab (1st floor, no room number) [place] [address] * (ABNORMAL) Hemoglobin A1c (07/12/2023 10:11 AM CDT) Hemoglobin A1C 6.7(H) <5.7 % 07/12/2023 10:37 AM CDT LABORATORY Comment: Normal <5.7% Prediabetes 5.7-6.4% Diabetes 6.5% or higher Note: Adopted from ADA consensus guidelines. Blood STRUCTURE OF LEFT UPPER LIMB / Unknown Venipuncture / Unknown 07/12/2023 10:11 AM CDT 07/12/2023 10:12 AM CDT Cyndi Ontiveros [facility] LAB - BLOOD ORDERABLES Final R esult Performing Organization Address City/[facility]/ZIP Co de Phone Number LABORATORY [facility] Acute [facility] Lab [address] Lab (1st floor, no room number) [place] [address] * (ABNORMAL) Basic metabolic panel (05/21/2023 9:09 AM CDT) Sodium 138 135 - 145 mmol/L 05/21/2023 10:05 AM CDT [facility] Comment:Reference intervals for this test were updated on 11/19/2022 to more accurately reflect our healthy population. There may be differences in the flagging of prior results with similar values performed with this method. Interpretation of those prior results can be made in the context of the updated reference intervals. Potassium 3.8 3.4 - 5.3 mmol/L 05/21/2023 10:05 AM CDT LABORATORY Chloride 102 98 - 107 mmol/L 05/21/2023 10:05 AM CDT LABORATORY Carbon Dioxide (CO2) 20(L) 22 - 29 mmol/L 05/21/2023 10:05 AM CDT LABORATORY Anion Gap 16(H) 7 - 15 mmol/L 05/21/2023 10:05 AM CDT LABORATORY Urea Nitrogen 11.3 6.0 - 20.0 mg/dL 05/21/2023 10:05 AM CDT LABORATORY Creatinine 0.75 0.51 - 0.95 mg/dL 05/21/2023 10:05 AM CDT LABORATORY GFR Estimate >90 >60 mL/min/1. 73m2 05/21/2023 10:05 AM CDT LABORATORY Calcium 9.5 8.6 - 10.0 mg/dL 05/21/2023 10:05 AM CDT LABORATORY Glucose 196(H) 70 - 99 mg/dL 05/21/2023 10:05 AM CDT LABORATORY Blood BLOOD SPECIMEN / Unknown Venipuncture / Unknown 05/21/2023 9:09 AM CDT 05/21/2023 9:17 AM CDT Jamaica Morocho MD LAB - BLOOD ORDERABLES Final Result LABORATORY [facility] Acute [facility] Lab [address] Lab (1st floor, no room number) [place] [address], [facility] from Last 3 Months or Most Recently Relevant to Health Maintenance Insurance [employer] PPO Member Subscriber Plan / Payer (Ef fective 2007-Present) Name:Darby Das Relation to Subscriber:Child Name:JESSICA GUERRERO Date of :1964 (Home) Address: [address] [place] [address] Payer ID:[id number] Group ID:[id number] Type:PPO Address: [address] [place] [id number] [employer] * Guarantor: BRENDA GUERRERO Account Type Relation to Patient Date of Phone Billing Address Personal/[place] [address] [place] [address] PPO Member Subscriber Plan / Payer (Ef fective 2007-Present) Name:Darby Das Relation to Subscriber:Child Name:JESSICA GUERRERO Date of :1965 (Home) Address: [address] [place] [address] Payer ID:[id number] Group ID:[id number] Type:PPO Address: [address] [place] [id number] [employer] Care Teams Buckle Attacher Relationship Specialty Start Date End Date [facility] [address] [place] [address] [id number] PCP - General 12/07/18 Carlos Bueno MD [address] [place] [address] [phone] Assigned PCP 12/19/21 Brodie Otto MD [address] [place] [phone] Resident Neurology 05/22/23 Jamaica Morocho MD [facility] [address] [place], [place] [phone] Emergency Medicine 05/22/23
--- OUTSIDE RECORDS SUMMARY | 2024-09-23 13:06 | XMS_ITS | Encounter Summary ---
Author Organization [facility] [facility] Address [address] [address] Care Team Providers Care Demo Coordinator Name Role Phone Aziza Winkler MD Primary Care Provider [phone] Reason for Visit * Reason Comments High Blood Sugar Encounter Details Date Type Department Care Team (Late st Contact Info) Description 11/16/2018 Nurse Triage Careline [address], [place] [address] Unassigned, Provider [address] [place] [address] High Blood Sugar Social History Tobacco Use Types Packs/Day Years Used Date Smoking Tobacco: Never Smokeless Tobacco: Never Alcohol Use Standard Drinks/Week Comments No 0 (1 standard drink = 0.6 oz pur e alcohol) Comments No Sex and Gender Information Value Date Recorded Sex Assigned at Not on file Legal Sex Female 4:38 AM CDT Gender Identity Not on file Sexual Orientation Not on file documented as of this encounter Nursing Notes * Marly Plummer RN - 11/17/2018 9:32 AM CDT Called Pt. And helped her schedule with Janice for Today at 1:30 am. FYI: Janice * Nelia Michael RN - 11/16/2018 7:19 PM CDT Reason for Disposition ??? Caller has URGENT medication or insulin pump question and triager unable to answer question Protocols used: DIABETES - HIGH BLOOD [id number] 7:[address] Brianna Hidalgo 7:[address] Brianna Hidalgo pt should increase basal rate by 0.1 per hour, decrease carb ratio by 2. Pt should call clinic and talk to Janice in next few days. Pt was advised. Pt says she called because she had given up ,and this is shitty advice She is already at 40-50 basal per day,plus 4-5 extra bolus. Pt is not going out of auto mode 7:[address] Brianna Hidalgo was paged 8:[address] Brianna Hidalgo MD did not know pt was in auto mode, it is not recommended to be in auto modeduring , with auto mode there is limited adjustments you can make. Pt can still decrease the carb ratio and she can change her active insulin by 30 minutes ie if 3 1/2 hours,she can change to 3 hours. Manual mode can give tighter control in Pt was advised Patient/nurse care manager request: Input needed Medication Specific Request: pt would like to be seen Edy,pt plans to call clinic Clinician route to Flag for care team/Care team pool as patient is expecting a call back. * Nelia Michael RN - 11/16/2018 7:04 PM CDT Verified patient identity using three identifiers: Yes name, and address Situation/Background (brief explanation of current symptoms/situation): pt is crying,says she can'tkeep her BG down. Pt woke after nap and BG now is 288,today BG has not been below 150 Pt says she has been giving herself higher insulin,has ghost bollusing Pt has nausea No cough,no cold,denies UTI sx, no fever Pt last ate at 4 pm, pt put in 4 carbs plus one extra ,pt is taking double insulin in 24 hours and still high blood sugar Blood ketone is 0.1 per pt Pt [facility] OB care,has been seen [facility]: first Gestational Age (by ANIL or LMP): 5 weeks Reviewed with patient pertinent medical history and risk status (as it relates to the call): Yes gastroparesis,DM type 1 Reviewed with patient pertinent medications (as they relate to call): Yes insulin bolus Reviewed with patient pertinent allergies (as they relate to call). * Nicike Tidwell - 11/16/2018 7:02 PM CDT Verified patient identity using three identifiers: Yes Caller's relationship to patient: Self At which care system or clinic is the patient normally seen? [facility] Symptoms Describe the reason for call/symptoms (include location and duration if applicable): Patient statesblood sugar reading is 288, is 5 weeks Plan:Caller transferred directly to CareLine nurse. documented in this encounter Plan of Treatment [...] 50 - 75% while on trip to [facility]. documented as of this encounter Visit Diagnoses Not on filedocumented in this encounter Care Teams Demo Coordinator Relationship Specialty [place] [address] [facility] [place] [address] PCP - General Hospitalist 04/03/16 documented as of this encounter
--- OUTSIDE RECORDS SUMMARY | 2024-09-23 13:06 | XMS_ITS | Encounter Summary ---
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 Author Taking my medication Diabetes Education On track( 017 4:14 PM CDT) No Dianna Carter RN, [facility] Note: Continue to use Bolus Wizard for all boluses. Solving problems related to my diabetes Diabetes Education No Dianna Carter RN, [facility] Note: Reduce basal rate to 50 - 75% while on trip to [facility]. documented as of this encounter Visit Diagnoses Not on filedocumented in this encounter Care Teams Clinical Training Specialist Relationship Specialty [place] [address] [place] [address] PCP - General Hospitalist 04/03/16 documented as of this encounter
--- OUTSIDE RECORDS SUMMARY | 2024-09-23 13:06 | XMS_ITS | Clinical Summary ---
Author Organization [facility] Address [address] [facility] , [address] [place] [address] Phone Care Team Providers Care Banking Supervisor Name Role Phone [facility] Unavailable Unava ilable Conditions or Problems Problem Name Problem Code Onset Date Status Entry Date Provider Comment Standard Description Annotate Factor V Leiden mutation, heterozygous 640614918 (SNOMED CT) Active Bimal Espinoza MD Heterozygous Factor V Leiden mutation Abnormal brain MRI 972767675 (SNOMED CT) Active Bimal Espinoza MD Magnetic resonance imaging of brain abnormal Headache, unspecified 81436456 (SNOMED CT) Active Bimal Espinoza MD Headache Medications Medication Instructions Start Date Stop Date Generic Name NDC Provider XARELTO 10 MG TABS rivaroxaban [id number] Bimal Espinoza MD MECLIZINE HCL 25 MG TABS meclizine [id number] Bimal Espinoza MD METFORMIN HCL ER 500 MG [id number] metformin (glucophage xr) 39176977580 Bimal Espinoza MD DEXCOM G7 SENSOR blood-glucose sensor 88302648659 Bimal Espinoza MD Medications Administered No information available. Allergies, Adverse Reactions, Alerts Allergy Name Reaction Description Start Date Severity Statu s Provider LACTASE-LACTOBACILLUS Gastrointestinal Mild Active Dionicio Jarecki GLUTEN MEAL Gastrointestinal Mild Active Dionicio Jarecki Results Date Name Value Unit Range Flag Description Office Visit: Office Visit A bnormal MRI, R facial pain, kemp. 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 MEDS REVIEW Done Documenta tion of current medications (procedure) Internal Other: Authorizatio n - OBS [email or web address] Yes Authoriza tion: Release of Information - Authorize [facility] - Payment and Healthcare Operations ROIAUTHOTHER Yes Authoriz ation: Release of Information - Authorize Others/Insurance - Payment and Healthcare Operations HIECONSENT Yes Consent To Release information to the Health Information Exchange (HIE) [email or web address] Yes Authorizat ion: Authorization for [facility] to leave messages, voicemail, send text messages, send emails AUTHRELHCARE Yes Authoriz ation: Release/Retrieval of Information to/from Healthcare Facilities, Pharmacy Benefit Payers and Providers AUTHPRIVPRAC Yes Authoriz ation: Notice of privacy practices AUTHBENEFIT Yes Authoriza tion: Assignment of Benefits and Payment Agreement Internal Other: Verbal Autho rization/Emergency Contact - OBS VERBAL_EMER Done Verbal au thorization and emergency contact Plan of Care Type Date Detail Pending order Follow up as nee ded Pending order Patient Instruct ions Procedures Code Procedure Name Date Entry Date [facility]-[id number] Documentation of current medicatio ns ORDERS Follow up as needed ORDERS Patient Instructions Vital Signs No information available. Immunizations No information available. Advance Directives No information available.
--- OUTSIDE RECORDS SUMMARY | 2024-09-23 13:07 | XMS_ITS | Clinical Summary ---
Author Organization [employer] Address [address] [place] [address] Care Team Providers Care Hygiene Teacher Name Role Phone Aziza Winkler MD Primary Care Provider Source Comments You are receiving this document as you are listed as the primary care provider,follow-up provider, or the patient has been referred to you for consultation.This is in compliance with the Medicare andMedicaid EHR Incentive Program,which states Providers who transition their patient to another setting of careor provider of care or refers their patient to another provider of care shouldprovide summary care record for each transition of care or referral. [facility] Allergies Active Allergy Reactions Criticality Noted Date Comments Bacid Gastrointestinal,Nausea 10/19/2021 intolerance intolerance Medications * This document contains information received from the source organization and may not represent a complete record from that organization. Insulin Syringe-Needle U-100 (INSULIN SYRINGE 1CC/29G) 29G X 1/2 1 ML Inject 3-4 Each subcutaneously daily. 300 Each 3 12/18/19 17 Active Probiotic Product (PROBIOTIC DAILY OR) Active Glucagon, rDNA, (GLUCAGON EMERGENCY) 1 MG Kit 04/09/19 22 Active Blood Glucose Monitoring Suppl (CONTOUR NEXT LINK) w/Device KITIndications:P re-existing type 1 diabetes mellitus during , antepartum Use as directed to test blood glucose 1 Kit 05/24/19 22 Active lancets (KERRIE MICROLET)Indicat ions:Pre-existin g type 1 diabetes mellitus during , antepartum Use 3 Each to test daily. Use as directed. Pharmacy dispense brand based on insurance. 300 Each 3 05/23/20 22 Active blood glucose (CONTOUR NEXT TEST) test stripIndications :Pre-existing type 1 diabetes mellitus during , antepartum Use 1 strip to test six times per day 600 Strip 05/24/19 Active loratadine (CLARITIN) 10 MG tablet Take 1 Tablet (10 mg) by mouth daily. Active insulin syringe-needle 30G X 1/2 inch 0.3 mL Inject 1 Each subcutaneously 4 times a day. 100 Each 09/14/19 Active Multiple Vitamin (MULTIVITAMINS OR) Active insulin lispro (HUMALOG; ADMELOG) 100 UNIT/ML injection vialIndications: Type 1 diabetes mellitus with other specified complication (HRC) INJECT SUBCUTANEOUSLY THREE TIMES DAILY BEFORE MEALS DIRECTED TOTAL DAILY USE 85 UNITS 80 mL 11/03/19 24 Active ondansetron (ZOFRAN) 4 MG tablet Take 1 Tablet (4 mg) by mouth every 8 hours as needed for Nausea. 30 Tablet 05/15/19 25 Active BAQSIMI ONE PACK 3 MG/DOSE nasal powder Place 1 Dose (3 mg) into one nostril as needed for Hypoglycemia. May repeat in 15 minutes prn. Do not open tube until ready to use. 1 Each 05/15/19 Active insulin glargine (LANTUS) 100 UNIT/ML injection Inject 14-15 Units subcutaneously daily. In case of pump fail. 10 mL 05/15/19 026 Active ALPRAZolam (XANAX) 0.5 MG tabletIndication s:Atypical chest pain,Anxiety (HRC) Take 1 Tablet (0.5 mg) by mouth at bedtime as needed. 15 Tablet 07/16/19 25 Active Dexcom G7 Sensor continuous blood glucose deviceIndication s:Type 1 diabetes mellitus with other specified complication (HRC) USE DIRECTED FOR CONTINUOUS GLUOSE MONITORING. CHANGE EVERY 10 DAYS 10 Each 08/03/19 25 Active tirzepatide-weig ht management (ZEPBOUND) 10 MG/0.5ML injection Inject 0.5 mL (10 mg) subcutaneously once every week. 2 mL 08/20/19 25 Active rivaroxaban (XARELTO) 10 MG tablet Take 1 Tablet (10 mg) by mouth daily. 90 Tablet 08/25/19 25 Active Active Problems Problem Noted Date Diagnosed Date long-term (current) use of anticoagulants 2024 Non-stress test reactive 09/13/2021 Pre-existing type 1 diabetes mellitus during in third trimester 09/13/2021 Need for hepatitis B vaccination 04/13/2021 Severe episode of recurrent major depressive disorder, without psychotic features 12/14/2020 Unsatisfactory anal cytology smear 10/11/2019 S/P primary low transverse 07/10/2019 Overview (09/13/2021): Added automatically from request for surgery [id number] Polyhydramnios affecting in third trim nikki 06/29/2019 Postherpetic neuralgia 06/15/2019 Overview (09/13/2021): Taking lidocaine patches, gabapentin 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 Hgb: TDap: Flu: GBS: Support: Spouse MPP CONSULTATION ON 01/05/19, F/U consult 06/01/19 Pre-Conception [facility] Consult 06/2018 REASON FOR CONSULT: Delivery [...] ECHO REFERRING PHYSICIAN/PHONE/LAST UPDATE: Sandy Berkowitz MD [facility] [phone] Primary MD approves scheduling of recommended ultrasounds/testing: Yes SPECIALISTS/CONSULTS: Endocrinology Janice Guerrero MD [phone] 12/10/18 - next 01/04/19 Hematology Peggy Dinh MD [place] [facility] [phone] 01/2018 Psychology Chaya Noel PsyD, [facility] [phone] 12/03/18 Ophthalmology Teresita Shelton, STEPHANY [facility] [phone] 07/07/18 - No retinopathy CARE COORDINATION: Petra Mendoza RN, [id number]; Dionna Shaver RN [id number] [facility] MOM[facility] Maternal Care Coordination Chart review completed 05/28/19 GENETICS: 12/31/18: [place] PROCEDURES: EKG 11/09/18: NSR PERTINENT LABS: Labs reviewed? Yes Normal? Yes A Negative/Antibody Negative 11/04/18: Hgb A1c: 6.9 PERTINENT MEDS: Insulin Pump Lovenox 40mg QD Celexa Preferred delivery location: [facility] PLAN OF CARE: 04/27/19 per [facility] -Return [...] She will continue to work with her rod drawer to achieve the goal of a hemoglobin [...] age for consultation and genetic counseling options. Gastroesophageal reflux disease without esophagi tis 01/22/2017 ASCUS of cervix with negative high risk HPV /02/2016 Overview (09/13/2021): 06/2016 ASCUS/HPV negative. Plan: Pap/HPV due 06/[address] 09/05/2014 Multiple thyroid nodules 07/08/2013 Seasonal allergies 10/15/2012 Factor V Leiden 05/06/2011 Overview (04/16/2022): homozygous, dx 2010 Other specified eating disorder 05/02/2011 Overview (10/16/2016): Other Specifed Feeding and Eating Disorder - OSFED Thyroid nodule 04/25/2011 Major depressive disorder, recurrent episode, mo derate 03/29/2010 Type 1 diabetes mellitus 03/29/2010 Overview (04/16/2022): Diagnosed around Managed by: Jamaica Muñoz (Commanding Officer [employer] @ [facility]) Complications: None known Previous/Ineffective Meds: Current/Effective Meds: Novolog insulin pump Tolerating Aspirin: Tolerating EBENEZER: Tolerating Statin: Last Eye Exam: June 2009 Last Foot Exam: Last DM education: February 2010 HEMOGLOBIN A1C (% Total Hgb) Date Value 03/25/2010 8.5* a1c = 4.9, 09/2021, insulin pump, endocrine History of pulmonary embolism 02/24/2010 Overview (04/16/2022): Added automatically from request for surgery [id number] Occurred while on OCP's 03-25-10 Previous Ineffective Meds: Current/Effective Meds: Lovenox, coumadin PCOS (polycystic ovarian syndrome) 10/18/2009 Generalized anxiety disorder 04/16/2007 Resolved Problems Problem Noted Date Diagnosed Date Resolved Date Mesenteric lymphadenitis 12/09/2010 Pulmonary embolism 03/26/2010 1 Bipolar affective 10/18/2009 04/08/2011 Counseling for parent-child problem 04/17/2007 04/11/2016 Overview (11/24/2014): [facility] Type 1 diabetes 04/16/2007 10/12/2023 Overview (09/13/2021): [facility] Complications of medical care 04/16/2007 03/29/2010 Overview (10/16/2016): Type I (juvenile type) diabetes mellitus without mention of complication, not stated as uncontrolled Bipolar disorder 04/08/2011 Depression 05/14/2024 Overview (05/14/2024): This problem was marked as resolved by a user in a SmartForm. Diabetic gastroparesis assoc iated with type 1 diabetes mellitus 05/14/2024 Overview (05/14/2024): This problem was marked as resolved by a user in a SmartForm. Encounters Date Type Department Care Team Description 09/08/2024 Results Follow-Up [facility] [address] End[address] [place] [address] Cyndi Ontiveros, CERTIFIED OPHTHALMIC TECHNOLOGIST, ENGINEER AND GEOLOGIST 09/06/2024 Results Follow-Up [facility] [address] Thrombosis [address] [place] [address] Carol Case, CERTIFIED OPHTHALMIC TECHNOLOGIST, ENGINEER AND GEOLOGIST 09/02/2024 8:50 AM CDT Lab Visit [facility] [address] [place] [address] Type 1 diabetes mellitus with other specified complication (HRC); On continuous oral anticoagulation 08/24/2024 4:00 PM CDT Telemedicine [facility] [address] [place] [address] Carol Case APRN, ENGINEER AND GEOLOGIST On continuous oral anticoagulation (Primary Dx); History of pulmonary embolism; Factor V Leiden (HRC) 08/19/2024 1:15 PM CDT Office Visit [place] [address] [place] [address]. [place] [address] Cyndi Ontiveros APRN, ENGINEER AND GEOLOGIST Type 1 diabetes mellitus with other specified complication (HRC) (Primary Dx); Diabetic gastroparesis associated with type 1 diabetes mellitus (HRC); Insulin pump in place (HRC); PCOS (polycystic ovarian syndrome) (HR); Thyroid nodule ([facility]) 08/04/2024 Refill [facility] [address]rombosis [address] [place] [address] Carol Case APRN, ENGINEER AND GEOLOGIST Refill 08/01/2024 Refill [facility] [address] [place] [address]. [place] [address] Cyndi Ontiveros APRN, ENGINEER AND GEOLOGIST Refill (Dexcom G7 Sensor continuous blood glucose device [Pharmacy Med Name: DEXCOM G7 SENSOR]) 07/26/2024 10:30 AM CDT Telemedicine [facility] [address] [place] [address]. [place], [place] [address] Cortney Fernández RDN, LD Type 1 diabetes mellitus without complication (HRC) (Primary Dx) 07/26/2024 E-Visit [facility] [address] [place] [address]. [place] [address] Mychart, Generic Provider 07/15/2024 12:20 PM CDT Lab Visit [address] [phone] Bilirubinuria; Proteinuria, unspecified type 07/15/2024 11:30 AM CDT Office Visit [place] [address] [place] [phone] Jeffrey Robles PA-C Atypical chest pain (Primary Dx); Anxiety (HRC); Bilirubinuria; Proteinuria, unspecified type; Type 1 diabetes mellitus without complication (HRC) 07/15/2024 Results Follow-Up [place] [address] [facility] [id number] [place] [phone] Jeffrey Robles PA-C 07/09/2024 Results Follow-Up [place] [address] [place] [address]. [place] [address] Cyndi Ontiveros, JOSE, ENGINEER AND GEOLOGIST 07/08/2024 9:00 AM CDT Lab Visit [address] [phone] Type 1 diabetes mellitus with other specified complication (HRC) 07/05/2024 9:45 AM CDT E-Visit [facility] [address] [place] [address]. [place] [address] Cyndi Ontiveros, CERTIFIED OPHTHALMIC TECHNOLOGIST, ENGINEER AND GEOLOGIST Chief Comp: RESULTS, TEST 07/02/2024 Results Follow-Up [place] [address] End[address] [place] [address] Cyndi Ontiveros, CERTIFIED OPHTHALMIC TECHNOLOGIST, ENGINEER AND GEOLOGIST 06/28/2024 9:20 AM CDT Lab Visit [address] [phone] Routine medical exam (Primary Dx); Type 1 diabetes mellitus without complication (HRC) from Last 3 Months Immunizations Immunization Administration Dates Next Due DTP 08/20/1995, 2,06/09/1990,1990,01/08/1990 DTaP 08/19/1995, 2,06/09/1990,1990,01/08/1990 Flu Vac (3+ yrs) 01/10/2005,12/10/2000 Flublok (RIV4) 12/16/2019 HepB Adult (Heplisav-B, 19+ yrs, 2 dose series) 04/27/2022,01/11/2022 HepB Ped/Adol (0-18 yrs) 10/12/2002,04/24,04/05/2002,1990,06/17/1990 HepB, Unspecified Formulation 08/08/1990, 991 Hib, Unspecified Formulation 03/16/1991, 09/04/1990,06/17/1990,1989 Influenza L3N0-50 02/09/2009 Influenza IIV4 (Quadrivalent ) 0.5mL (21338) 11/27/2022,01/11/2022,02/18/2019 Influenza, Unspecified Formulation 12/15,01/10/2005,01/25/1993,1992 MMR 03/16/1991 Moderna Monovalent 12+ 04/21/2020,03/24/2020 Moderna Monovalent Booster 12+ 04/13/2021 OPV, Trivalent (Orimune or tOPV) 996,03/16/1991,04/15/1990,1989 Pfizer Bivalent 12+ 02/04/2022 Polio, Unspecified Formulation 6,03/16/1991,04/15/1990,1989 Rho(D) - IG, IM 08/30/2021 TB Skin Test (PPD) 02/05/2011,09/02/1990 Tdap 08/30/2021,04/20/2019,04/25/2014 Family History Medical History Relation Name Comments Good Health Father Good Health Mother Asthma Brother Depression Cousin Depression Maternal Aunt Good Health Sister Relation Name Status Comments Father Alive Mother Alive Brother Cousin Maternal Aunt Sister Social History Tobacco Use Types Packs/Day Years Used Date Smoking Tobacco: Never Smokeless Tobacco: Never Tobacco Cessation:Counseling Given: Not Answered Alcohol Use Standard Drinks/Week Comments No 0 [...] 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 Not on file Not on trudi e Last Filed Vital Signs Vital Sign Reading Time Taken Comments Blood Pressure 93/60 08/19/2024 1:22 PM CDT Pulse 71 08/19/2024 1:22 PM CDT Temperature 36.8 C (98.3 F) 05/23/2023 9:06 AM CDT Respiratory Rate 16 07/15/2024 11:26 AM CDT Oxygen Saturation 99% 05/23/2023 9:06 AM CDT Inhaled Oxygen Concentration - - Weight 63 kg (139 lb) 08/19/2024 1:22 PM CDT Height 162.6 cm (5' 4.02) 07/26/2024 2:22 PM CD T Body Mass Index 23.85 07/26/2024 2:22 PM CDT Plan of Treatment Health Maintenance Due Date Last Done Comments Hep C Screening (Preventive Services) 1989 Pneumococcal Vaccine (1 of 2 - PCV) 2008 COVID-19 Vaccine ( season) 2023 02/04/2022, 04/13/2021, 04/21/2020, Additional history exists Diabetes: Eye Exam 10/02/2024 10/03/2023, 0 10/03/2023, 10/03/2023, Additional history exists Influenza Vaccine (#1) 2024 , 01/11/2022, 12/16/2019, Additional history exists Adult Preventive Visit 12/18/2024 12/18/2022 Diabetes: HGBA1C 12/29/2024 06/28/2024, 06/2024, 07/12/2023, Additional history exists Diabetes: Creatinine 06/28/2025 06/28/2024, 06/17/2022, 10/18/2021, Additional history exists Diabetes: Foot Exam 08/19/2025 08/19/2024 (Completed ) Diabetes: Urine Microalbumin 09/02/202511/2024, 07/08/2024, 06/28/2024, Additional history exists Cervical Cancer Screening 12/21/20262023, 04/12/2021, 04/12/2021, Additional history exists Diabetes: Lipid Panel 09/02/2029 09/02/2024 , 06/28/2024, 06/17/2022, Additional history exists DTaP/Tdap/Td Vaccine (9 - Tdap) 08/31/2031 08/30/2021, 04/20/2019, 04/25/2014, Additional history exists Zoster/Shingles Vaccine (1 of 2) 11/03/2039 Hib Vaccine Completed 03/16/1991, 08/24, 06/17/1990, Additional history exists IPV (Polio) Vaccine Completed 08/19/1995, 08/19/1995, 03/16/1991, Additional history exists HIV Screening (Preventive Services) Completed 04/12/2021 HepB Vaccine Completed 04/27/2022, 12/25, 10/12/2002, Additional history exists HPV Vaccine Aged Out No longer eligi ble based on patient's age to complete this topic HepA Vaccine Aged Out No longer eligi ble based on patient's age to complete this topic MCV4 Vaccine Aged Out No longer eligi ble based on patient's age to complete this topic Meningococcal B Vaccine Aged Out No l onger eligible based on patient's age to complete this topic Goals Goal Patient Goal Type Associated Problems Recent Progress Patient-Stated? Author Taking my medication Diabetes Education On track( 017 4:14 PM CDT) No Dianna Carter, RN, WILLISES Note: Continue to use Bolus Wizard for all boluses. Solving problems related to my diabetes Diabetes Education No Dianna Carter, RN, [facility] 2001ES Note: Reduce basal rate to 50 - 75% while on trip to [facility]. Procedures Procedure Name Priority Date/Time Associated Diagnosis Comments UA MICRO Routine 09/02/2024 8:59 AM CDT Type 1 diabetes mellitus with other specified complication (HRC) URINALYSIS ROUTINE, MICRO/CULTURE IF POS Routine 09/02/2024 8:59 AM CDT Type 1 diabetes mellitus with other specified complication (HRC) ALBUMIN/CREAT RATIO Routine 09/02/2024 8:59 AM CDT Type 1 diabetes mellitus with other specified complication (HRC) PLATELETS Routine 09/02/2024 8:57 AM CDT On continuous oral anticoagulation HEMOGLOBIN, BLOOD Routine 09/02/2024 8:5 7 AM CDT On continuous oral anticoagulation LIPID PANEL & DIRECT LDL (IF NEEDED) Routine 09/02/2024 8:57 AM CDT Type 1 diabetes mellitus with other specified complication (HRC) URINALYSIS ROUTINE, MICRO/CULTURE IF POS Routine 07/15/2024 12:04 PM CDT Bilirubinuria Proteinuria, unspecified type LIVER PANEL(HEPATIC FUNCTION PANEL) Routine 07/15/2024 12:01 PM CDT Bilirubinuria Proteinuria, unspecified type UA MICRO Routine 07/08/2024 9:06 AM CDT Type 1 diabetes mellitus with other specified complication (HRC) URINALYSIS ROUTINE, MICRO/CULTURE IF POS Routine 07/08/2024 9:06 AM CDT Type 1 diabetes mellitus with other specified complication (HRC) ALBUMIN/CREAT RATIO Routine 07/08/2024 9:06 AM CDT Type 1 diabetes mellitus with other specified complication (HRC) ALBUMIN/CREAT RATIO Routine 06/28/2024 9:35 AM CDT Type 1 diabetes mellitus without complication (HRC) DNA ANALYSIS DISCRETE SEQUENCE VARIATION PANEL (BLOOD) Routine 06/28/2024 9:22 AM CDT Routine medical exam TSH, SENSITIVE Routine 06/28/2024 9:21 AM CDT Type 1 diabetes mellitus without complication (HRC) HGB A1C Routine 06/28/2024 9:21 AM CDT Type 1 diabetes mellitus without complication (HRC) CREATININE / GFR Routine 06/28/2024 9:21 AM CDT Type 1 diabetes mellitus without complication (HRC) LIPID PANEL & DIRECT LDL (IF NEEDED) Routine 06/28/2024 9:21 AM CDT Type 1 diabetes mellitus without complication (HRC) JHONY (DIABETIC EYE EXAM) 10/03/2023 HIV 1/2 AG/AB 4TH GEN Routine 04/12/2021 4:19 PM [employer] WORK[employer] Supervision of high risk in first trimester HPV WITH 16 18 GENOTYPING, CERVICAL/ENDOCERVI BALJEET Routine 04/12/2021 3:56 PM [employer] WORKER Screening for cervical cancer from Last 3 Months or Most Recently Relevant to Health Maintenance Results * (ABNORMAL) Urinalysis Routine, Micro/Culture if Pos: Clean Catch (09/02/2024 8:59 AM CDT) Only the most recent of3 resultswithin the time period is included. Urine Microscopic Evaluation Reflex Order Comment Urinalysis results meet criteria for reflex, urine microscopic evaluation performed. 09/02/2024 9:19 AM [facility] Color Yellow 09/02/2024 9:19 AM [facility] Clarity Clear Clear 09/02/2024 9:19 AM [facility] Specific [place] 1.025 1.005 - 1.030 09/02/2024 9:19 AM [facility] pH 6.0 5.0 - 8.0 09/02/2024 9:19 AM [facility] Protein Negative Neg/Trace mg/dL 09/02/2024 9:19 AM [facility] Glucose Negative Negative mg/dL 09/02/2024 9:19 AM [facility] Ketones Negative Negative mg/dL 09/02/2024 9:19 AM [facility] Urobilinogen 0.2 <2.0 EU/dL 09/02/2024 9:19 AM [facility] Bilirubin Negative Negative 09/02/2024 9:19 AM [facility] Blood Trace Neg/Trace 09/02/2024 9:19 AM [facility] Nitrite Negative Negative 09/02/2024 9:19 AM T [facility] Leukocyte Esterase Trace(A) Negative 09/02/2024 9:19 AM CDT [facility] Source Clean Catch 09/02/2024 9:19 AM T [facility] Urine URINE SPECIMEN COLLECTION, CLEAN CATCH / Unknown Non-blood Collection / Unknown 09/02/2024 8:59 AM CDT 09/02/2024 8:59 AM CDT Cyndi Ontiveros APRN, ENGINEER AND GEOLOGIST LAB_1 Final Re sult Performing Organization Address [facility]/ZIP Co de Phone Number [facility] [address] [place] [address] * Albumin/Creatinine Ratio,Random Urine (09/02/2024 8:59 AM CDT) Only the most recent of3 resultswithin the time period is included. Pathologist [facility] Albumin/Creati nine Ratio, Urine, Random 8 <30 mg/g 09/02/2024 10:32 AM [facility] Albumin, Urine, Random 14.3 mg/L 09/02/2024 10:32 AM T [facility] Creatinine, Urine, Random 176 >20 mg/dL mg/dL 09/02/2024 10:32 AM [facility] Urine Non-blood Collection / Unknown 09/02/2024 8:59 AM CDT 09/02/2024 8:59 AM CDT Cyndi Ontiveros APRN, ENGINEER AND GEOLOGIST LAB_1 Final Re sult Performing Organization Address City/[facility]/ZIP Co de Phone Number [facility] [address] [place] [address] * (ABNORMAL) Urine Microscopic Evaluation: Clean Catch (09/02/2024 8:59 AM CDT) Only the most recent of2 resultswithin the time period is included. Pathologist [facility] Urine Culture Comment Urinalysis results do not meet criteria for urine culture reflex. 09/02/2024 9:19 AM T [facility] Red Blood Cells 0-3 0 - 3 /HPF 09/02/2024 9:19 AM T [facility] White Blood Cells 0-5 0 - 5 /HPF 09/02/2024 9:19 AM T [facility] Bacteria Moderate(A) None Seen /HPF 09/02/2024 9:19 AM CDT [facility] Squamous Epithelial Cells Few None Seen, Occasiona l, Few /HPF 09/02/2024 9:19 AM T [facility] Mucus Present(A) None Seen /HPF 09/02/2024 9:19 AM CDT [facility] Urine URINE SPECIMEN COLLECTION, CLEAN CATCH / Unknown Non-blood Collection / Unknown 09/02/2024 8:59 AM CDT 09/02/2024 8:59 AM CDT us Cyndi Ontiveros APRN, ENGINEER AND GEOLOGIST LAB_1 Final Re sult [facility] [address] [place] [address], [facility] * Lipid Panel and Direct LDL (if needed) (09/02/2024 8:57 AM CDT) Only the most recent of2 resultswithin the time period is included. Cholesterol 197 0 - 199 mg/dL 09/02/2024 4:22 PM [facility] Triglyceride 45 <=149 mg/dL 09/02/2024 4:22 PM [facility] HDL Cholesterol 61 >=40 mg/dL 4:22 PM [facility] LDL, Calculated 127 <130 mg/dL 4:22 PM [facility] Non HDL Chol, Calculated 136 <=159 mg/dL 09/02/2024 4:22 PM [facility] Cholesterol/HDL Ratio 3.2 <=5.0 09/02/2024 4:22 PM [facility] Hours Fasting 14.0 8 - 12 Hours 09/02/2024 4:22 PM [facility] Blood Venipuncture / Unknown 09/02/2024 8:57 AM CDT 09/02/2024 8:57 AM CDT Cyndi Ontiveros APRN, ENGINEER AND GEOLOGIST LAB_1 Final Re sult Performing Organization Address [facility] de Phone Number [facility] [address] [place] [address] [address] [place] [address] * Platelets (09/02/2024 8:57 AM CDT) Pathologist [facility] Platelets 239 150 - 450 x10(9)/L 09/02/2024 9:04 AM CDT [facility] Blood Venipuncture / Unknown 09/02/2024 8:57 AM CDT 09/02/2024 8:57 AM CDT Carol Case APRN, MARTHA LAB_1 Fin al Result Performing Organization Address [facility] de Phone Number [facility] [address] [place] [address] * Hemoglobin, Blood (09/02/2024 8:57 AM CDT) Pathologist [facility] Hemoglobin 12.8 12.0 - 15.5 g/dL 09/02/2024 9:04 AM CDT [facility] Blood Venipuncture / Unknown 09/02/2024 8:57 AM CDT 09/02/2024 8:57 AM CDT Carol Case APRN, ENGINEER AND GEOLOGIST LAB_1 Fin al Result Performing Organization Address [facility] de Phone Number [facility] [address] [place] [address] * (ABNORMAL) Liver Panel(Hepatic Function Panel) (07/15/2024 12:01 PM CDT) Alkaline Phosphatase 28(L) 40 - 150 U/L 07/15/2024 2:57 PM CDT [facility] Bilirubin, Total 0.6 0.2 - 1.2 mg/dL 07/15/2024 2:57 PM CDT [facility] Bilirubin, Direct 0.2 0.0 - 0.5 mg/dL 07/15/2024 2:57 PM CDT [facility] AST (SGOT) 21 10 - 40 U/L 07/15/2024 2:57 PM CDT [facility] ALT (SGPT) 13 0 - 55 U/L 07/15/2024 2:57 PM CDT [facility] Protein, Total 7.2 6.4 - 8.3 g/dL 07/15/2024 2:57 PM CDT [facility] Albumin 4.1 3.5 - 5.0 g/dL 07/15/2024 2:57 PM CDT [facility] Blood Venipuncture / Unknown 07/15/2024 12:01 PM CDT 07/15/2024 12:01 PM CDT Jeffrey Robles PA-C LAB_1 Final Result Performing Organization Address City/State/[facility] Co de Phone Number [facility] [address] [place] [address] * DNA Analysis Discrete Sequence Variation Panel (Blood) (Initial) (06/28/2024 9:22 AM CDT) Date Sample Received at Testing Lab 06/29/2024 07/06/2024 5:52 PM CDT [facility] Familial Hypercholesterolemia Not Detected 07/06/2024 5:52 PM CDT [facility] Comment: Pathogenic variant not detected. Genes Tested: APOB, BRCA1, BRCA2, EPCAM, LDLR, LDLRAP1, PCSK9, PMS2, MLH1, MSH2, MSH6 Test Description: [employer] Tier One Population Screen is a screening test that analyzes 11 genes related to hereditary breast and ovarian cancer (HBOC) syndrome, Pastrana syndrome, and familial hypercholesterolemia. This test only reports clinically significant pathogenic and likely pathogenic variants but does not report variants of uncertain significance (VUS). In addition, analysis of the PMS2 gene excludes exons 11-15, which overlap with a known pseudogene (PMS2CL). Disclaimer: This test was developed and validated by [facility]. This test has not been cleared or approved by the [place] Food and Drug Administration (FDA). The [facility] laboratory is accredited by the [employer] (CAP) and certified under the Clinical Laboratory Improvement Amendments (CLIA #: [id number]) to perform high-complexity clinical tests. This test is used for clinical purposes. It should not be regarded as investigational or for research. Methods and Limitations: Extracted DNA is enriched for targeted regions and then sequenced using the [employer] Exome+ (R) assay on an Illumina DNA sequencing system. Data is then aligned to a modified version of GRCh38 and all genes are analyzed using the VENTURA transcript and VENTURA Plus Clinical transcript, when available. Small variant calling is completed using a customized version of [employer]'s Q1Media software, augmented by a proprietary small variant caller for difficult variants. Copy number variants (CNVs) are then called using a proprietary bioinformatics pipeline based on depth analysis with a comparison to similarly sequenced samples. Analysis of the PMS2 gene is limited to exons 1-10. The interpretation and reporting of variants in APOB, PCSK9, and LDLR is specific to familial hypercholesterolemia; variants associated with hypobetalipoproteinemia are not included. Interpretation is based upon guidelines published by the [employer] [employer] (ACMG), the Association for Molecular Pathology (AMP) or their modification by ClinGen Variant Curation Expert Panels when available and/or review of previous clinical assertions available in the ClinVar database. Interpretation is limited to the transcripts indicated on the report and +/- 10 bp into intronic regions, except as noted below. [employer] variant classifications include pathogenic, likely pathogenic, variant of uncertain significance (VUS), likely benign, and benign. Only variants classified as pathogenic and likely pathogenic are included in the report. All reported variants are confirmed through secondary manual inspection of DNA sequence data or orthogonal testing. Risk estimations and management guidelines included in this report are based on analysis of primary literature and recommendations of applicable professional societies, and should be regarded as approximations.Based on validation studies, this assay delivers > 99% sensitivity and specificity for single nucleotide variants and insertions and deletions (indels) up to 20 bp. Larger indels and complex variants are also reported but sensitivity may be reduced. Based on validation studies, this assay delivers > 99% sensitivity to multi-exon CNVs and > 90% sensitivity to single-exon CNVs. This test may not detect variants in challenging regions (such as short tandem repeats, homopolymer runs, and segment duplications), sub-exonic CNVs, chromosomal aneuploidy, or variants in the presence of mosaicism. Phasing will be attempted and reported, when possible. Structural rearrangements such as inversions, translocations, and gene conversions are not tested in this assay unless explicitly indicated. Additionally, deep intronic, promoter, and enhancer regions may not be covered. It is important to note that this is a screening test and cannot detect all disease-causing variants. A negative result does not guarantee the absence of a rare, undetectable variant in the genes analyzed; consider using a diagnostic test if there is significant personal and/or family history of one of the conditions analyzed by this test. Any potential incidental findings outside of these genes and conditions will not be identified, nor reported. The results of a genetic test may be influenced by various factors, including bone marrow transplantation, blood transfusions, or in rare cases, hematolymphoid neoplasms.Gene Specific Notes:APOB: analysis is limited to c.18759J>A and c.81698X>T; BRCA1: sequencing analysis extends to CDS +/-20 bp; BRCA2: sequencing analysis extends to CDS +/- 20 bp. EPCAM: analysis is limited to CNVof exons 8-9; LDLR: analysis includes CNV ofthe promoter; MLH1: analysis includes CNV of the promoter; PMS2: analysis is limited to exons 1-10. Sequencing Location: Sequencing done at [facility] [address] [place] [address] [address], [place] [address] ([facility]# [id number]) Designation: Trae Eugene, PhD, [facility] Email: [email or web address] Hereditary Breast and Ovarian Cancer Syndrome Not Detected 07/06/2024 5:52 PM CDT [employer] Comment:Pathogenic variant n ot detected. Pastrana Syndrome Not Detected 07/06/2024 5:52 PM CDT [employer] Comment:Pathogenic variant n ot detected. Blood or Saliva VENOUS BLOOD SPECIMEN / Unknown 06/28/2024 9:22 AM CDT 06/28/2024 9:22 AM CDT us Aidan Keith MD LAB_1 Final Result [facility] [address] [facility] [address] [place] [address] * Creatinine / GFR (06/28/2024 9:21 AM CDT) Creatinine 0.79 0.55 - 1.02 mg/dL 06/28/2024 5:28 PM CDT [facility] GFR, Estimated >60 >60 mL/min/1.7 3m2 06/28/2024 5:28 PM T [facility] Blood Venipuncture / Unknown 06/28/2024 9:21 AM CDT 06/28/2024 9:21 AM CDT Cyndi Ontiveros APRN, MARTHA LAB_1 Final Re sult Performing Organization Address City/[facility]/ZIP Co de Phone Number [facility] [address] [place] [address] * TSH (06/28/2024 9:21 AM CDT) [facility] TSH, Sensitive 0.81 0.30 - 4.50 uIU/mL 06/28/2024 4:15 PM CDT [facility] Blood Venipuncture / Unknown 06/28/2024 9:21 AM CDT 06/28/2024 9:21 AM CDT Cyndi Ontiveros APRN, MARTHA LAB_1 Final [facility] Performing Organization Address City/[facility] de Phone Number [facility] [address] [place] [id number] [place] [address] * (ABNORMAL) HgbA1c - Collect in Lab (06/28/2024 9:21 AM CDT) [facility] Hemoglobin A1C 5.9(H) <=5.6 % 06/28/2024 5:13 PM T [facility] Estimated Average Glucose (Calc) 123 < 117 mg/dL 06/28/2024 5:13 PM [facility] Comment:Estimated average gl ucose (eAG) converts A1c into glucose units (mg/dL) and estimates average glucose over the past approximately 3 months. The eAG reference interval (<117 mg/dL) corresponds to an A1c of <5.7%. Blood Venipuncture / Unknown 06/28/2024 9:21 AM CDT 06/28/2024 9:[address] [facility] - 06/28/2024 5:13 PM CDT For patients not previously diagnosed with diabetes: 5.7-6.4%: Increased risk for diabetes 6.5% and greater: Diagnostic for diabetes For patients diagnosed with diabetes: <8.0%: Goal of therapy for ages 18-75 Clinicians may recommend a higher or lower goal for specific individuals. us Cyndi Ontiveros APRN, ENGINEER AND GEOLOGIST LAB_1 Final Re sult Performing Organization Address [facility] de Phone Number [facility] [address] * JHONY (DIABETIC EYE EXAM) (10/03/2023) us Interface Provider DUMMY/OTHER/AR Final Resu lt * HIV 1/2 AG/AB 4TH GEN (04/12/2021 4:19 PM CLAY PROCESSING FACTORY WORKER) [facility] HIV 1/2 Antigen/Anti body (4th generation) Negative (Non Reactive) Negative (Non Reactive) 04/12/2021 7:36 PM CLAY PROCESSING FACTORY WORKER [facility] Comment:HIV-1 p24 Antigen an d HIV-1/HIV-2 Antibody not detected Blood Venipuncture / Unknown 04/12/2021 4:19 PM CLAY PROCESSING FACTORY WORKER 04/12/2021 4:19 PM CLAY PROCESSING FACTORY WORKER us Josephine Sanchez MD LAB_1 Final Resul t Performing Organization Address [facility] Co de Phone Number [facility] [address] [phone] * HPV with 16 18 Genotyping (04/12/2021 3:56 PM CLAY PROCESSING FACTORY WORKER) [facility] HPV High Risk Type 16 PCR Not Detected Not detected 04/14/2021 6:23 AM CLAY PROCESSING FACTORY WORKER [facility] HPV High Risk Type 18 PCR Not Detected Not Detected 04/14/2021 6:23 AM CLAY PROCESSING FACTORY WORKER [facility] HPV High Risk Other Than 16/18 Not Detected Not detected 04/14/2021 6:23 AM [facility] Cervical Broom ENTIRE ENDOCERVIX / Unknown 04/12/2021 3:56 PM CLAY PROCESSING FACTORY WORKER 04/12/2021 4:29 PM CLAY PROCESSING FACTORY WORKER [facility] - 04/14/2021 6:23 AM CLAY PROCESSING FACTORY WORKER The [employer] HPV test is a qualitative in vitro test for the detection of Human Papillomavirus in [facility] patient specimens. The test utilizes amplification of target DNA by Polymerase Chain Reaction (PCR) and nucleic acid hybridization for the detection of 14 high-risk (HR) HPV types. The assay tests for high risk types (16, 18, 31, 33, 35, 39, 45, 51, 52, 56, 58, 59, 66, and 68). Josephine Sanchez MD LAB_1 Final Resul t [address] [phone] from Last 3 Months or Most Recently Relevant to Health Maintenance Insurance SELF INSURED SELF INSURED Advance Directives * Full Code (Latest Code Status on File) Date Activated Date Inactivated Comments 10/19/2021 9:06 AM 10/21/2021 11:19 AM * Full Code Date Activated Date Inactivated Comments 10/18/2021 9:10 PM 10/19/2021 9:06 AM Care Teams Hygiene Teacher Relationship Specialty [place] [address] [address] [address] PCP - General Hospitalist 04/03/16
--- OUTSIDE RECORDS SUMMARY | 2024-09-23 13:07 | XMS_ITS | Encounter Summary ---
Author Organization [facility] Address [address] [address] Care Team Providers Care Dermatology Nurse Practitioner Name Role Phone Aziza Winkler MD Primary Care Provider [phone] Encounter Details Date Type Department Care Team (Late st Contact Info) Description 09/08/2024 Results Follow-Up [facility] [address] Endocrinology [address] [facility]. 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 Author Taking my medication Diabetes Education On track( 017 4:14 PM CDT) No Dianna Carter RNPERLA Note: Continue to use Bolus Wizard for all boluses. Solving problems related to my diabetes Diabetes Education No Dianna Carter RN, WILLIS Note: Reduce basal rate to 50 - 75% while on trip to [facility]. documented as of this encounter Visit Diagnoses Not on filedocumented in this encounter Care Teams Dermatology Nurse Practitioner Relationship Specialty [place] [address] [address] [place] [address] PCP - General Hospitalist 04/03/16 documented as of this encounter
--- OUTSIDE RECORDS SUMMARY | 2024-09-23 13:07 | XMS_ITS | Encounter Summary ---
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 Patient needs an appointment for any future refills from me. Otherwise she can get refills through her primary care provider. Thank you. * Lissette Jorge I - 08/04/2024 7:50 AM CDT Clinician: Review and advise and Route to Thrombosis Patient/acute care physical therapist request: New Order: Medication Specific Request: Patient last saw Thrombosis in May 2023. Unclear whether this patient is supposed to follow up with Thrombosis or whether refills should go to PCP. Please advise. documented in this encounter Plan of Treatment [...] 50 - 75% while on trip to [facility]. documented as of this encounter Visit Diagnoses Not on filedocumented in this encounter Care Teams Process Controller Relationship Specialty [place] [address] [address] [place] [address] PCP - General Hospitalist 04/03/16 documented as of this encounter
[2024-09-23 13:30] VITALS: BP 124/88; PULSE 103; RESP 18; TEMP 37.9; O2SAT 99; BMI 24.0
[2024-09-23] MEDS: LACTATED RINGERS 1000 ML 1,000 ML IV (14:43)
[2024-09-23 14:55] LABS: Troponin, Point-of-Care* 0.00 ng/ml (0.01-0.04)
--- OUTSIDE RECORDS SUMMARY | 2024-09-23 14:57 | XMS_ITS | Clinical Summary ---
Author Organization [facility] Address [address] [facility] , [address] [place] [address] Phone Care Team Providers Care Lard Bleacher Name Role Phone [facility] Unavailable Unava ilable Conditions or Problems Problem Name Problem Code Onset Date Status Entry Date Provider Comment Standard Description Annotate Factor V Leiden mutation, heterozygous 478719969 (SNOMED CT) Active Bimal Espinoza MD Heterozygous Factor V Leiden mutation Abnormal brain MRI 504581916 (SNOMED CT) Active Bimal Espinoza MD Magnetic resonance imaging of brain abnormal Headache, unspecified 53749537 (SNOMED CT) Active Bimal Espinoza MD Headache Medications Medication Instructions Start Date Stop Date Generic Name NDC Provider XARELTO 10 MG TABS rivaroxaban [id number] Bimal Espinoza MD MECLIZINE HCL 25 MG TABS meclizine [id number] Bimal Espinoza MD METFORMIN HCL ER 500 MG [id number] metformin (glucophage xr) [id number] Bimal Espinoza MD DEXCOM G7 SENSOR blood-glucose sensor [id number] Bimal Espinoza MD Medications Administered No information available. Allergies, Adverse Reactions, Alerts Allergy Name Reaction Description Start Date Severity Statu s Provider LACTASE-LACTOBACILLUS Gastrointestinal Mild Active Dionicio Jarecki GLUTEN MEAL Gastrointestinal Mild Active Dionicio Jarecki Results Date Name Value Unit Range Flag Description Office Visit: Office Visit A bnormal MRI, R facial pain, kemp. [facility] SMOK STATUS never smoker Toba account assistant smoking status MEDS REVIEW Done Documenta tion [...] Procedures Code Procedure Name Date Entry Date [facility]-[id number] Documentation of current medicatio ns ORDERS Follow up as needed ORDERS Patient Instructions Vital Signs No information available. Immunizations No information available. Advance Directives No information available.
[2024-09-23 15:00] LABS: Hematocrit 40.0 % (33.0-51.0); Hemoglobin* 13.7 gm/dL (12.0-16.0); Immature Granulocytes Abs Auto 0.08 K/uL (0.00-0.30); Immature Granulocytes Pct Auto 0.8 %; Mean Corpuscular HGB Conc 34 gm/dL (32-36); Mean Corpuscular Hemoglobin 32 pg (26-34); Mean Corpuscular Volume 93 fL (80-100); RDW Coefficient of Variation % 11.5 % (11.5-15.5); Red Blood Count 4.30 m/uL (4.00-5.20); White Blood Count* 9.52 K/uL (4.50-11.00)
[2024-09-23 15:16] LABS: Albumin* 4.1 g/dL (3.3-5.0); Chloride* 103 mmol/L (96-114); Sodium* 135 mmol/L (135-149)
[2024-09-23 15:17] LABS: Potassium* 4.2 mmol/L (3.6-5.1)
[2024-09-23 15:18] LABS: Lymphocytes Absolute Auto 1.80 K/uL (0.90-2.90); Slide Review Reflex No
[2024-09-23 15:19] LABS: Alanine Aminotransferase* 13 U/L (4-35); Alkaline Phosphatase* 39 U/L (40-150); Anion Gap 10 mEq/L (7-15); Aspartate Amino Transferase* 24 U/L (12-35); Bilirubin Total* 1.5 mg/dL (0.1-1.5); Blood Urea Nitrogen* 14 mg/dL (5-24); Carbon Dioxide* 22 mmol/L (20-32); Creatinine* 0.8 mg/dL (0.5-1.5); Est. Creatinine Clearance* 85.56; Estimated Glomerular Filt Rate 99 ml/min; Total Protein* 7.0 g/dL (6.0-8.3)
--- NOTE | 2024-09-23 15:19 | ED_ITS ---
HPI - Abdominal Pain General Date Seen: 09/23/24 Chief Complaint: Abdominal Pain Stated Complaint: Abdominal pain Time Seen by Provider: 09/23/24 13:48 Source: patient Mode of arrival: ambulatory Limitations: no limitations History of Present Illness HPI narrative: Patient is 33-year-old female with a history of type 1 diabetes and gastroparesis presenting to the emergency department for abdominal pain. She states she started having some abdominal discomfort last night. She used Zofran which seemed to help with the nausea. Symptoms persisted into this morning and she started to have worsening pain. Pain is in the epigastric region. She states previously when this happens she will vomit and pain will go away. She states she vomited and it did not get better. She has also been burping which typically helps her pain but that has also not been helping she states. She she currently does not feel nauseated after using her Zofran and pain has improved after she took ibuprofen but she was concerned the symptoms usually improve quicker. Denies any fevers, chills, shortness of breath, weakness, numbness, headache. She does have some chest discomfort that she describes as a burning sensation similar to GERD. She believes it is from her vomiting. No other concerns noted at this time. Related Data Home Medications ?Medication ?Instructions ?Recorded ?Confirmed insulin glargine 100 unit/mL 14 - 15 unit subcut DAILY 09/23/24 09/23/24 subcutaneous solution (Lantus U-100 Insulin) insulin lispro 100 unit/mL subcut 3XD 09/23/24 subcutaneous solution ondansetron HCl 4 mg tablet 4 mg PO Q8H PRN nausea 09/23/24 rivaroxaban 10 mg tablet (Xarelto) 10 mg PO DAILY 08/2609/23/24 tirzepatide (weight loss) 5 mg/0.5 5 mg subcut QWEEK 0 09/23/24 09/23/24 mL subcutaneous pen injector (Zepbound) Allergies Allergy/AdvReac Type Severity Reaction Status Date / Time No Known Drug Allergies Allergy Verified 09/23/24 13:37 Review of Systems Status of ROS Reports: 10 or more systems reviewed and unremarkable except as noted in History and below PFSH PFSH Social History Smoking Status: Never smoker Do you use any of these nicotine containing products: None Second hand tobacco smoke exposure: No How often do you have a drink containing alcohol: never How often do you have six or more drinks on one occasion: Never AUDIT-C Alcohol total score: 0 Non-prescribed substance use: denies use service: No Exam Narrative: Exam Narrative: Const: Well-nourished, Well-developed, in mild distress Eyes: PERRL, no conjunctival injection, and symmetrical lids HENT: Atraumatic external nose and ears. Moist mucous membranes. Neck: Symmetric, trachea midline, No thyromegaly. CVS: RRR, No murmurs or gallops. Peripheral pulses 2+ and equal in all extremities RESP: Unlabored respiratory effort. Clear to auscultation bilaterally. GI: Mild epigastric tenderness, Nondistended, No rebound or guarding. MSK:Extremities w/o deformity, Normal Active ROM Skin: Warm, Dry. No rashes or lesions. Neuro: Normal Muscle tone, No focal neurological deficits. Psych: Awake, Alert, & Oriented x3. Appropriate mood and affect. Const: Vital Signs, click to edit/add: Vital Signs - 24 hr 09/23/24 13:30 Temperature 100.2 F H Pulse Rate [Right Pulse Oximeter] 103 H Respiratory Rate 18 Blood Pressure [Ri ght Upper Arm] 124/88 Pulse Oximetry 99 Oxygen Delivery Me thod Room Air Course Vital Signs Vital signs: Initial Vital Signs Temperature 100.2 F H 09/23/24 13:30 Temperature Source Temporal Artery Scan 09/23/24 13:30 Pulse Rate 103 H 09/23/24 13:30 Pulse Rhythm Regular 09/23/24 13:30 Pulse Strength 3+ Normal 09/23/24 13:30 Respiratory Rate 18 09/23/24 13:30 Blood Pressure 124/88 09/23/24 13:30 Blood Pressure Mean 100 09/23/24 13:30 Blood Pressure Position Sitting 09/23/24 13:30 Pulse Oximetry 99 09/23/24 13:30 Oxygen Delivery Method Room Air 09/23/24 13:30 Vital Signs Temperature 100.2 F H 09/23/24 13:30 Pulse Rate 103 H 09/23/24 13:30 Respiratory Rate 18 09/23/24 13:30 Blood Pressure 124/88 09/23/24 13:30 Pulse Oximetry 99 09/23/24 13:30 Oxygen Delivery Method Room Air 09/23/24 13:30 Temperature 100.2 F H 09/23/24 13:30 Pulse Rate 103 H 09/23/24 13:30 Respiratory Rate 18 09/23/24 13:30 Blood Pressure 124/88 09/23/24 13:30 Pulse Oximetry 99 09/23/24 13:30 Oxygen Delivery Method Room Air 09/23/24 13:30 Medications Administered Medications: Discontinued Medications Generic Name Dose Route Start Last Admin Trade Name Jose L PRN Reason Stop Dose Admin Lactated Ringer's 1,000 mls @ 1,000 mls/hr 09/23/24 14:23 09/23/24 15:49 Lactated Ringers 1000 Ml IV 09/23/24 15:22 Infused .Q1H ONE Infusion MDM - Abdominal Pain MDM Narrative Medical decision making narrative: Patient is a 33-year-old female presenting for abdominal pain. Pain is mostly in the epigastric region. Symptoms could be related to gastroparesis. She states she has previously been on Reglan but now take Zofran as prescribed by her nurse emergency room. She is unsure why there was the change and does not remember when they did change it. Pain is mostly in the epigastric so this could be pancreatitis or gastritis. Will also look for signs of gallbladder and liver disease. Concerning location appendicitis and diverticulitis seems unlikely. She has had multiple CT scans before for other issues she states an considering this seems very similar to previous episodes of her gastroparesis I believe would be unnecessary to do a another CT scan. She has not want anything for pain or nausea at this time as she is feeling well. Will give her some fluids for dehydration though. She has not been able to eat much today. Lab work shows no acute concerning abnormalities. EKG shows no concerning abnormalities. Considering how long symptoms have been going on do not believe repeat troponin is necessary. Overall she is feeling well at this time. I do believe her symptoms are likely from her gastroparesis. She is safe for discharge. She is agreeable to this plan. Lab Data Labs: Lab Results 09/23/24 09/23/24 Range/Units 14:23 14:35 WBC 9.52 (4.50-11.00) K/uL RBC 4.30 (4.00-5.20) m/uL Hgb 13.7 (12.0-16.0) gm/dL Hct 40.0 (33.0-51.0) % MCV 93 (80-100) fL MCH 32 (26-34) pg MCHC 34 (32-36) gm/dL RDW Coeff of Say 11.5 (11.5-15.5) % Plt Count 224 (140-440) K/uL Neut % (Auto) 72.4 H (42.0-72.0) % Lymph % (Auto) 19.1 L (20-44) % [place] % (Auto) 7.0 (0.0-11.0) % Eos % (Auto) 0.6 (0.0-7.0) % Baso % (Auto) 0.1 (0.0-3.0) % Neut # (Auto) 6.90 (1.7-7.0) K/uL Lymph # (Auto) 1.80 (0.90-2.90) K/uL [place] # (Auto) 0.70 (0.00-0.90) K/UL Eos # (Auto) 0.06 (0.00-0.50) K/uL Baso # (Auto) 0.01 (0.00-0.30) K/uL Abs Immat Gran (auto) 0.08 (0.00-0.30) K/uL Imm/Tot Granulo (auto) 0.8 % Sodium 135 (135-149) mmol/L Potassium 4.2 (3.6-5.1) mmol/L Chloride 103 (96-114) mmol/L Carbon Dioxide 22 (20-32) mmol/L Anion Gap 10 (7-15) mEq/L BUN 14 (5-24) mg/dL Creatinine 0.8 (0.5-1.5) mg/dL Estimated Creat Clear 85.56 Estimated GFR 99 ml/min Glucose 177 H (60-115) mg/dL Calcium 8.8 (8.4-10.6) mg/dL Total Bilirubin 1.5 (0.1-1.5) mg/dL AST 24 (12-35) U/L ALT 13 (4-35) U/L Alkaline Phosphatase 39 L (40-150) U/L Total Protein 7.0 (6.0-8.3) g/dL Albumin 4.1 (3.3-5.0) g/dL Lipase 33 (23-300) U/L POC Troponin I 0.00 L (0.01-0.04) ng/ml ECG Data Attestation: I personally reviewed and interpreted this ECG as follows: Prior ECG tracings: not available for review Interpretation: Normal sinus rhythm with a rate 79 beats per minute, normal intervals, normal axis, no ST or T-wave abnormalities. Discharge Plan Discharge Clinical Impression: Abdominal pain Patient Disposition: Home, Self-Care Condition: Stable Instructions: Acute Abdominal Pain (ED) Additional Instructions: Seems likely your symptoms were related to her gastroparesis. I do recommend continuing to use your Zofran as needed for nausea. At this time is time fluids and more important in eating solids. Return to emergency department for new or worsening symptoms. Prescriptions: No Action insulin glargine [Lantus U-100 Insulin] 100 unit/mL solution 14 - 15 unit subcut DAILY ondansetron HCl 4 mg tablet 4 mg PO Q8H PRN (Reason: nausea) insulin lispro 100 unit/mL solution subcut 3XD Xarelto 10 mg tablet 10 mg PO DAILY Zepbound 5 mg/0.5 mL pen injector 5 mg subcut QWEEK Follow Up/Referrals: Provider,Not a Local [Primary Care Provider, Family Practice] Stand Alone Forms: [employer] Info Instructions
[2024-09-23 15:20] LABS: Calcium* 8.8 mg/dL (8.4-10.6); Glucose* 177 mg/dL (60-115)
== END 2024-09-23 15:59 | disposition home or self-care (01) ==
PROVIDERS: Emergency Provider Student in an Organized Health Care Education/Training Program
DX: R10.13 Epigastric pain (principal)
CPT/HCPCS: 36415; 80053; 83690; 84484; 85025; 99283; J7120